=== PATIENT | male | born 1935 | race Caucasian/White ===

== ENCOUNTER 2016-07-30 07:06 | Observation (INO) | payer MEDICARE ==
[2016-07-30] VITALS (9 sets, daily range): BP systolic 120–196; BP diastolic 57–84; PULSE 74–114; RESP 18–22; TEMP 99.1–100.5; O2SAT 93–96
[~2016-07-30] VITALS: Ht 170.2 cm; Wt 77.2 kg
[~2016-07-30 07:06] MED LIST: ACAR50TA PO; APIX2.5T PO; ARIC10TA PO; ASPI81TA82 PO; ATOR80TA41 PO; EXEN2VIA SC; ISOS30 PO; LEVO.025 PO; LISI-360 PO; METO50CR PO; NAME10TA PO; NITR.4 SL; RANO500 PO; SUCR1TAB PO; UMEC1AER INH; ZOLO20CO PO
[2016-07-30] MEDS: SODIUM CHLORIDE 0.9% FLUSH 5 ML FLUSH IVF PRN ×2 (07:29→10:38)
--- NOTE | 2016-07-30 07:29 | PD ---
HPI Chief Complaint: General Weakness Time Seen by Provider: 07:29 Travel History International Travel<30 days: No (unknown) Contact w/Intl Traveler<30days: No (unknown) History of Present Illness HPI 81yo M with PMH of CAD, HLD, CVA, hypothyroidism, dementia, DM, Bladder CA s/p resection presents to the ED with c/o generalized weakness since waking up this morning. Pt denies any fever, cough, chest pain, sob, n/v, abdominal pain, or diarrhea. Pt had atrial flutter with PVCs on the monitor at 120s. BP was 196/ 84 so cardizem 20mg IV ordered. Pt had hospitalization on 09/25/15-09/30/15 for GI bleed and found to be bleeding from AVM. 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) Neurologic: Yes Psychiatric: No Reproductive: Yes (BLADDER MASS REMOVED LISTED ABOVE) Respiratory: Yes (ASTHMA) Immunizations Current: No Migraines: No Renal Failure: No Seizures: No Sleep Apnea: No Thyroid Disease: No Ulcer: No Past Surgical History Abdominal Surgery: Yes (BLADDER-MASS BETWEEN BLADDER AND KIDNEYS) AICD: No Ear Surgery: No Eye Surgery: Yes (CA IN LEFT EYE JUN 2015) Insulin Pump: No Joint Replacement: No Pacemaker: No Other Surgery: Yes (MASS REMOVED FROM KIDNEY AREA) Social History Alcohol Use: No Tobacco Use: No (QUIT 1979) Substance Use: No Allergies-Medications (Allergen,Severity, Reaction): Coded Allergies: Levaquin (Verified Allergy, Intermediate, RASH, 07/30/16) Penicillin (Verified Allergy, Unknown, UNKNOWN REACTION, 07/30/16) Reported Meds & Prescriptions Reported Meds & Active Scripts Active Reported Pantoprazole (Pantoprazole Sodium) 40 Mg Tab 40 Mg PO DAILY Tamsulosin (Tamsulosin HCl) 0.4 Mg Cap 0.4 Mg PO HS Glimepiride 4 Mg Tab 4 Mg PO BIDAC Gabapentin 100 Mg Cap 100 Mg PO TID Terazosin (Terazosin HCl) 5 Mg Cap 5 Mg PO HS Ciclopirox (Nail Lacquer) Topical 8% Soln 1 Applic TOPICAL HS Carisoprodol 350 Mg Tab 350 Mg PO QID PRN Montelukast (Montelukast Sodium) 10 Mg Tab 10 Mg PO HS Folic Acid 400 Mcg Tab 400 Mcg PO DAILY Aspirin Childrens (Aspirin) 81 Mg Chew 81 Mg CHEW DAILY Nitroglycerin SL (Nitroglycerin) 0.4 Mg Subl 0.4 Mg SL DIRECTED PRN ONE TABLET UNDER THE TONGUE NEEDED FOR CHEST PAIN, MAY REPEAT EVERY FIVE MINUTES FOR A TOTAL OF 3 DOSES OR CALL 911 IF NO RELIEF Sertraline (Sertraline HCl) 50 Mg Tab 50 Mg PO DAILY Levothyroxine (Levothyroxine Sodium) 25 Mcg Tab 25 Mcg PO DAILY Atorvastatin (Atorvastatin Calcium) 80 Mg Tab 80 Mg PO HS Donepezil Hydrochloride 5 Mg Tab 10 Mg PO DAILY Namenda (Memantine) 10 Mg Tab 0 PO BID Metoprolol Tartrate 50 Mg Tab 50 Mg PO BID Lisinopril 20 Mg Tab 20 Mg PO DAILY Acarbose 50 Mg Tab 50 Mg PO TID [ bydureon] 1 Applic SQ WEEKLY Review of Systems Except as stated in HPI: all other systems reviewed are Neg Physical Exam Narrative GENERAL: 81yo M not in acute distress. SKIN: Warm and dry. HEAD: Atraumatic. Normocephalic. EYES: Pupils equal and round. No scleral icterus. No injection or drainage. ENT: No nasal bleeding or discharge. Mucous membranes pink and moist. NECK: Trachea midline. No JVD. CARDIOVASCULAR: Tachycardic in the 120s. RESPIRATORY: No accessory muscle use. Clear to auscultation. Breath sounds equal bilaterally. GASTROINTESTINAL: Abdomen soft, non-tender, nondistended. No rebound tenderness or guarding. MUSCULOSKELETAL: No obvious deformities. No clubbing. No cyanosis. No edema. NEUROLOGICAL: Awake and alert. No obvious cranial nerve deficits. Motor grossly within normal limits. Normal speech. AAOx2. Data Data Last Documented VS Vital Signs Date Time Temp Pulse Resp B/P Pulse Ox O2 Delivery O2 Flow Rate FiO2 07/30/16 08:47 84 22 159/69 94 Room Air 07/30/16 07:21 99.1 Orders Electrocardiogram (07/30/16 07:15) Complete Blood Count With Diff (07/30/16 07:17) Comprehensive Metabolic Panel (07/30/16 07:17) Magnesium (Mg) (07/30/16 07:17) Ckmb (Isoenzyme) Profile (07/30/16 07:17) Troponin I (07/30/16 07:17) Act Partial Throm Time (Ptt) (07/30/16 07:17) Prothrombin Time / Inr (Pt) (07/30/16 07:17) Urinalysis - C+S If Indicated (07/30/16 07:17) Chest, Single Ap (07/30/16 07:17) Ecg Monitoring (07/30/16 07:17) Iv Access Insert/Monitor (07/30/16 07:17) Oximetry (07/30/16 07:17) Sodium Chloride 0.9% Flush (Ns Flush) (07/30/16 07:30) Thyroid Stimulating Hormone (07/30/16 07:17) Diltiazem Inj (Cardizem Inj) (07/30/16 07:30) Magnesium Sulfate 1 Gm Premix (Magnesium (07/30/16 07:30) Admit Order (Ed Use Only) (07/30/16 09:00) Enoxaparin Inj (Lovenox Inj) (07/30/16 09:00) Diltiazem Cd (Cardizem Cd) (07/30/16 09:00) Labs Laboratory Tests Test 07/30/16 07/30/16 07:35 07:45 White Blood Count 7.1 TH/MM3 Red Blood Count 4.01 MIL/MM3 Hemoglobin 11.2 GM/DL Hematocrit 34.4 % Mean Corpuscular Volume 85.7 FL Mean Corpuscular Hemoglobin 28.0 PG Mean Corpuscular Hemoglobin 32.6 % Concent Red Cell Distribution Width 17.5 % Platelet Count 135 TH/MM3 Mean Platelet Volume 7.9 FL Neutrophils (%) (Auto) 79.0 % Lymphocytes (%) (Auto) 6.9 % Monocytes (%) (Auto) 12.5 % Eosinophils (%) (Auto) 1.2 % Basophils (%) (Auto) 0.4 % Neutrophils # (Auto) 5.6 TH/MM3 Lymphocytes # (Auto) 0.5 TH/MM3 Monocytes # (Auto) 0.9 TH/MM3 Eosinophils # (Auto) 0.1 TH/MM3 Basophils # (Auto) 0.0 TH/MM3 CBC Comment DIFF FINAL Differential Comment Prothrombin Time 11.8 SEC Prothromb Time International 1.1 RATIO Ratio Activated Partial 28.7 SEC Thromboplast Time Sodium Level 138 MEQ/L Potassium Level 4.4 MEQ/L Chloride Level 102 MEQ/L Carbon Dioxide Level 25.9 MEQ/L Anion Gap 10 MEQ/L Blood Urea Nitrogen 18 MG/DL Creatinine 1.75 MG/DL Estimat Glomerular Filtration 38 ML/MIN Rate Random Glucose 237 MG/DL Calcium Level 8.2 MG/DL Magnesium Level 1.6 MG/DL Total Bilirubin 0.7 MG/DL Aspartate Amino Transf 16 U/L (AST/SGOT) Alanine Aminotransferase 26 U/L (ALT/SGPT) Alkaline Phosphatase 69 U/L Total Creatine Kinase 72 U/L Troponin I 0.05 NG/ML Total Protein 6.3 GM/DL Albumin 2.8 GM/DL Thyroid Stimulating Hormone 1.220 uIU/ML 3rd Gen Urine Color YELLOW Urine Turbidity CLEAR Urine pH 6.0 Urine Specific [place] 1.018 Urine Protein 30 mg/dL Urine Glucose (UA) 1000 mg/dL Urine Ketones NEG mg/dL Urine Occult Blood SMALL Urine Nitrite NEG Urine Bilirubin NEG Urine Urobilinogen LESS THAN 2.0 MG/DL Urine Leukocyte Esterase NEG Urine RBC 1 /hpf Urine WBC 1 /hpf Urine Squamous Epithelial <1 /hpf Cells Urine Mucus FEW /lpf Microscopic Urinalysis Comment CULT NOT INDICATED MDM Medical Decision Making Medical Screen Exam Complete: Yes Emergency Medical Condition: Yes Interpretation(s) EKG: Aflutter at 120bpm with PVCs. Last Impressions Chest X-Ray 07/30/16716 Signed Impressions: Service Date/Time: July 07:28 - CONCLUSION: Cardiomegaly. No acute abnormality seen. Ethan Rodriguez MD Laboratory Tests Test 07/30/16 07/30/16 07:35 07:45 White Blood Count 7.1 TH/MM3 (4.0-11.0) Red Blood Count 4.01 MIL/MM3 (4.50-5.90) Hemoglobin 11.2 GM/DL (13.0-17.0) Hematocrit 34.4 % (39.0-51.0) Mean Corpuscular Volume 85.7 FL (80.0-100.0) Mean Corpuscular Hemoglobin 28.0 PG (27.0-34.0) Mean Corpuscular Hemoglobin 32.6 % Concent (32.0-36.0) Red Cell Distribution Width 17.5 % (11.6-17.2) Platelet Count 135 TH/MM3 (150-450) Mean Platelet Volume 7.9 FL (7.0-11.0) Neutrophils (%) (Auto) 79.0 % (16.0-70.0) Lymphocytes (%) (Auto) 6.9 % (9.0-44.0) Monocytes (%) (Auto) 12.5 % (0.0-8.0) Eosinophils (%) (Auto) 1.2 % (0.0-4.0) Basophils (%) (Auto) 0.4 % (0.0-2.0) Neutrophils # (Auto) 5.6 TH/MM3 (1.8-7.7) Lymphocytes # (Auto) 0.5 TH/MM3 (1.0-4.8) Monocytes # (Auto) 0.9 TH/MM3 (0-0.9) Eosinophils # (Auto) 0.1 TH/MM3 (0-0.4) Basophils # (Auto) 0.0 TH/MM3 (0-0.2) CBC Comment DIFF FINAL Differential Comment Prothrombin Time 11.8 SEC (9.8-11.6) Prothromb Time International 1.1 RATIO Ratio Activated Partial 28.7 SEC Thromboplast Time (24.3-30.1) Sodium Level 138 MEQ/L (136-145) Potassium Level 4.4 MEQ/L (3.5-5.1) Chloride Level 102 MEQ/L (98-107) Carbon Dioxide Level 25.9 MEQ/L (21.0-32.0) Anion Gap 10 MEQ/L (5-15) Blood Urea Nitrogen 18 MG/DL (7-18) Creatinine 1.75 MG/DL (0.60-1.30) Estimat Glomerular Filtration 38 ML/MIN (>89) Rate Random Glucose 237 MG/DL (74-106) Calcium Level 8.2 MG/DL (8.5-10.1) Magnesium Level 1.6 MG/DL (1.5-2.5) Total Bilirubin 0.7 MG/DL (0.2-1.0) Aspartate Amino Transf 16 U/L (15-37) (AST/SGOT) Alanine Aminotransferase 26 U/L (12-78) (ALT/SGPT) Alkaline Phosphatase 69 U/L (45-117) Total Creatine Kinase 72 U/L (39-308) Troponin I 0.05 NG/ML (0.02-0.05) Total Protein 6.3 GM/DL (6.4-8.2) Albumin 2.8 GM/DL (3.4-5.0) Thyroid Stimulating Hormone 1.220 uIU/ML 3rd Gen (0.358-3.740) Urine Color YELLOW (YELLW/STRAW) Urine Turbidity CLEAR (CLEAR) Urine pH 6.0 (5.0-8.5) Urine Specific [place] 1.018 (1.002-1.035) Urine Protein 30 mg/dL (NEG-TRACE) Urine Glucose (UA) 1000 mg/dL (NEG) Urine Ketones NEG mg/dL (NEG) Urine Occult Blood SMALL (NEG) Urine Nitrite NEG (NEG) Urine Bilirubin NEG (NEG) Urine Urobilinogen LESS THAN 2.0 MG/DL (LESS THAN 2.0) Urine Leukocyte Esterase NEG (NEG) Urine RBC 1 /hpf (0-3) Urine WBC 1 /hpf (0-5) Urine Squamous Epithelial <1 /hpf (0-5) Cells Urine Mucus FEW /lpf (OCC) Microscopic Urinalysis Comment CULT NOT INDICATED Differential Diagnosis Atrial flutter vs. dehydration vs. electrolyte abnormalities vs. GI bleed vs. infectious cause such as UTI or PNA vs. hyperthyroidism Narrative Course 81yo M with generalized weakness since this morning. Pt was in aflutter in the 120s and given cardizem 20mg IV. Pt's heart rate improved to 80s. Pt has no history of aflutter. Labs reviewed, no leukocytosis. Creatinine mildly elevated from baseline at 1.75. Troponin 0.05. Glucose 237, no increased anion gap, normal CO2. Mg 1.6, given 1gm of magnesium sulfate. Calcium 8.2, replace with calcium gluconate. TSH 1.22. CXR showed cardiomegaly. No acute abnormality seen. Paged pt's bank examiner Dr. Bond. Discussed with Dr. Bond who states he does not know the patient and does not know if he had that history. Discussed with Dr. Dumont who recommended I start him on PO cardizem and lovenox. Accepted to medicine service. Critical Care Narrative Aggregate critical care time was 35 minutes. Time to perform other separately billable procedures was not included in the critical care time. My time did not include minutes spent treating any other patients simultaneously or on activities that did not directly contribute to the patient's treatment. The services I provided to this patient were to treat and/or prevent clinically significant deterioration that could result in: cardiovascular collapse or . I provided critical care services requiring my management, as noted below: Chart data review, documentation time, medication orders and management, vital sign assessments/reviewing monitor data, ordering and reviewing lab tests, ordering and interpreting/reviewing x-rays and diagnostic studies, care of the patient and discussion of the patient with the admitting physicians. Diagnosis Primary Impression: Atrial flutter Qualified Code: I48.92 - Atrial flutter, unspecified type Admitting Information Admitting Physician Requests: it Francesca Dawkins DO Jul 30, 2016 07:29
[2016-07-30] MEDS ORDERED: DILTIAZEM HCL 25 MG/5 ML VIAL IV ONE (07:30)
[2016-07-30] MEDS ORDERED: MAGNESIUM SULFATE 1 GM PREMIX 100 ML IV ONE (07:30)
[2016-07-30 07:54] LABS: AUTOMATED NEUTROPHIL # 5.6 TH/MM3 (1.8-7.7); BASOPHIL % 0.4 % (0.0-2.0); EOSINOPHIL # 0.1 TH/MM3 (0-0.4); EOSINOPHIL % 1.2 % (0.0-4.0); HEMATOCRIT 34.4 % (39.0-51.0); HEMO FLAGS DIFF FINAL; LYMPH % 6.9 % (9.0-44.0); LYMPHOCYTE # 0.5 TH/MM3 (1.0-4.8); MEAN CELL VOLUME 85.7 FL (80.0-100.0); MEAN CORPUSCULAR HGB CONC 32.6 % (32.0-36.0); MONO % 12.5 % (0.0-8.0); PLATELET COUNT 135 TH/MM3 (150-450); RED BLOOD COUNT 4.01 MIL/MM3 (4.50-5.90); RED CELL DISTRIBUTION WIDTH 17.5 % (11.6-17.2); WHITE BLOOD COUNT 7.1 TH/MM3 (4.0-11.0)
--- NOTE | 2016-07-30 08:01 | RADRPT ---
EXAM DATE/TIME: 07/30/2016 07:28 [facility] COMPARISON: CHEST SINGLE AP, September 25, 2015, 22:26. INDICATIONS : Patient states no complaint except being confused. MEDICAL HISTORY : Myocardial infarction. Hypercholesterolemia. Cerebrovascular accident. Dementia. SURGICAL HISTORY : Bladder mass removal. Tumors removed from left kidney. ENCOUNTER: Initial ACUITY: 1 day PAIN SCORE: 0/10 LOCATION: Bilateral chest FINDINGS: Heart size is mildly enlarged. The aortic arch is calcified. The lungs are clear. No effusion is seen . There is degenerative change of the glenohumeral joints. CONCLUSION: Cardiomegaly. No acute abnormality seen. Ethan Rodriguez MD on July 30, 2016 at 7:55 Board Certified Radiologist. This report was verified electronically.
[2016-07-30 08:05] LABS: ALT (GPT) 26 U/L (12-78); ANION GAP 10 MEQ/L (5-15); AST (GOT) 16 U/L (15-37); BICARBONATE 25.9 MEQ/L (21.0-32.0); BLOOD UREA NITROGEN 18 MG/DL (7-18); CHLORIDE 102 MEQ/L (98-107); GLOMERULAR FILTRATION RATE 38 ML/MIN (>89); MAGNESIUM 1.6 MG/DL (1.5-2.5); POTASSIUM 4.4 MEQ/L (3.5-5.1); SODIUM (NA) 138 MEQ/L (136-145)
[2016-07-30 08:13] LABS: APTT (PATIENT) 28.7 SEC (24.3-30.1); INTERNATIONAL NORMALIZED RATIO 1.1 RATIO; PROTHROMBIN TIME - PATIENT 11.8 SEC (9.8-11.6)
[2016-07-30 08:15] LABS: ALKALINE PHOSPHATASE 69 U/L (45-117); TOTAL BILIRUBIN ADULT 0.7 MG/DL (0.2-1.0)
[2016-07-30 08:17] LABS: CREATINE KINASE 72 U/L (39-308)
[2016-07-30 08:25] LABS: BLOOD, URINE SMALL (NEG); COMMENT (UR) CULT NOT INDICATED; CULTURE IF INDICATED CULT NOT INDICATED; GLUCOSE,URINE 1000 mg/dL (NEG); KETONE, URINE NEG (NEG); MUCUS URINE FEW /lpf (OCC); NITRITE,URINE NEG (NEG); SQUAMOUS EPITHELIAL CELL URINE <1 /hpf (0-5); URINE COLOR YELLOW (YELLW/STRAW)
[2016-07-30] MEDS ORDERED: METO50TA PO (08:45)
[2016-07-30] MEDS ORDERED: GABA100C4 PO (08:45)
[2016-07-30] MEDS ORDERED: GLIM4TAB PO (08:45)
[2016-07-30] MEDS ORDERED: SERT-132 PO (08:45)
[2016-07-30] MEDS ORDERED: LEVO25TA4 PO (08:45)
[2016-07-30] MEDS ORDERED: NAME10TA PO (08:45)
[2016-07-30] MEDS ORDERED: DONE1TAB90 PO (08:45)
[2016-07-30] MEDS ORDERED: TAMS0.4C4 PO (08:45)
[2016-07-30] MEDS ORDERED: CICL8SOL TOPICAL (08:45)
[2016-07-30] MEDS ORDERED: NITR1SUB3 SL (08:45)
[2016-07-30] MEDS ORDERED: PANT40TA3 PO (08:45)
[2016-07-30] MEDS ORDERED: FOLI400T PO (08:45)
[2016-07-30] MEDS ORDERED: ATOR1TAB18 PO (08:45)
[2016-07-30] MEDS ORDERED: ACAR50TA PO (08:45)
[2016-07-30] MEDS ORDERED: CARI350T20 PO (08:45)
[2016-07-30] MEDS ORDERED: ASPI81CH5 CHEW (08:45)
[2016-07-30] MEDS ORDERED: MONT10TA4 PO (08:45)
[2016-07-30] MEDS ORDERED: bydureon SQ (08:45)
[2016-07-30] MEDS ORDERED: LISI-515 PO (08:45)
[2016-07-30] MEDS ORDERED: TERA5CAP3 PO (08:45)
[2016-07-30] MEDS ORDERED: DILTIAZEM-CD 120 MG CAP ER PO ONE (09:00)
[2016-07-30] MEDS ORDERED: ENOXAPARIN SODIUM 30 MG/0.3 ML SYRINGE SQ ONE (09:00)
[2016-07-30] MEDS ORDERED: CALCIUM GLUCONATE INJ 1 GM in DEXTROSE 5% IN WATER 100ML INJ 100 ML IV ONE ×2 (09:15)
[2016-07-30] MEDS ORDERED: GLUCAGON 1 MG/ML VIAL OTHER PRN (10:30)
[2016-07-30] MEDS ORDERED: DEXTROSE 50% IN WATER 50 ML VIAL(D50) IV PUSH PRN (10:30)
[2016-07-30] MEDS: INSULIN ASPART SUPPLEMENTAL SCALE SQ SCH ×3 (11:59→21:00)
[2016-07-30] MEDS ORDERED: ACARBOSE 50 MG PO SCH (13:00)
[2016-07-30] MEDS: DILTIAZEM HCL 30 MG TAB PO SCH ×2 (13:43→17:33)
[2016-07-30] MEDS: GABAPENTIN 100 MG CAP PO SCH ×2 (13:43→17:33)
[2016-07-30] MEDS ORDERED: SODIUM CHLORIDE 0.9% FLUSH 5 ML FLUSH FLUSH PRN (14:30)
[2016-07-30] MEDS ORDERED: NALOXONE HCL 0.4 MG/ML AMP IV PRN (14:30)
[2016-07-30] MEDS ORDERED: ONDANSETRON HCL 4 MG/2 ML VIAL IVP PRN (14:30)
[2016-07-30] MEDS ORDERED: ACETAMINOPHEN 325 MG TAB PO PRN (14:30)
[2016-07-30] MEDS ORDERED: MAGNESIUM HYDROXIDE SUSP 30 ML CUP PO PRN (14:30)
[2016-07-30] MEDS ORDERED: ENOXAPARIN SODIUM 40 MG/0.4 ML SYRINGE SQ SCH (15:00)
[2016-07-30] MEDS: DOCUSATE SODIUM 100 MG CAP PO SCH (15:00)
--- NOTE | 2016-07-30 15:21 | HHI.HP ---
HPI Service [facility] Primary [facility] Harrison Jackson MD Admission Diagnosis Aflutter Diagnoses: Chief Complaint: acute onset weakness, SOB, clammy (Tashia Palacios) Travel History International Travel<30 Days: No (unknown) Contact w/Intl Traveler <30 Da: No (unknown) Traveled to Known Affected Are: No (Tashia Palacios) History of Present Illness This is an 81-year-old white male with multi-medical comorbid conditions including coronary artery disease, dementia, GI bleed, diabetes, and NV. Patient had been in his usual condition up until this a.m. He awoke his around 645 this a.m. with complaints of extreme weakness and shortness of breath. Patient was unable to get out of the bed without major assistance and had urinated on himself. was unable to help patient get up to the bathroom , but she states he ended up crawling most of the way. She states he is for head was clammy to touch, but he did not complain of any chest pain. Patient also complained of some events of constipation in the recent past, and GI distress. One half states patient did have complaints of mild headache but denies any cough or diarrhea. Patient is a poor historian due to his dementia so is the main historian in the emergency room. In the emergency room, patient was placed on the heart monitor which showed atrial flutter with rapid ventricular response. Patient was treated with IV Cardizem. He also was hypertensive with systolic blood pressure 196, but now has returned back into the 148 systolic range. Patient has decreased appetite noted here in the ER and states that this has been a problem for the past week. 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 Heart appearing Hypertension Degenerative disc disease History of tobacco use History of alcohol use Past Surgical History Cardiac stents Bladder surgery for bladder mass Left surgery Reported Medications Active Medications Acetaminophen (Tylenol) 650 mg Q4H PRN PO; Start 07/30/16 at 14:30 Aspirin (Aspirin Chew) 81 mg DAILY CHEW; Start 07/31/16 at 09:00 Atorvastatin Calcium (Lipitor) 80 mg HS PO; Start 07/30/16 at 21:00 Calcium Gluconate/ Dextrose (Calcium Gluconate Inj/D5W 100 ml Inj) 110 ml @ 110 mls/hr ONCE ONCE IV Last administered on 07/30/16 10:38; Admin Dose 110 MLS/HR; Start 07/30/16 at 09:15; Stop 07/30/16 at 10:14; Status DC Dextrose (D50w (Vial) Inj) 25 ml UNSCH PRN IV PUSH; Start 07/30/16 at 10:30 Diltiazem HCl (Cardizem) 30 mg QID PO Last administered on 07/30/16 13:43; Admin Dose 30 MG; Start 07/30/16 at 13:00 Diltiazem HCl 120 mg 120 mg ONCE ONCE PO Last administered on 07/30/16 10:38; Admin Dose 120 MG; Start 07/30/16 at 09:00; Stop 07/30/16 at 09:02; Status DC Diltiazem HCl 20 mg 20 mg ONCE ONCE IV Last administered on 07/30/16 07:29; Admin Dose 20 MG; Start 07/30/16 at 07:30; Stop 07/30/16 at 07:31; Status DC Docusate Sodium (Colace) 100 mg Q12H PO; Start 07/30/16 at 15:00 Donepezil HCl (Aricept) 10 mg DAILY PO; Start 07/31/16 at 09:00 Enoxaparin Sodium (Lovenox Inj) 35 mg ONCE ONCE SQ Last administered on 10:38; Admin Dose 35 MG; Start 07/30/16 at 09:00; Stop 07/30/16 at 09:02; Status DC Enoxaparin Sodium (Lovenox Inj) 40 mg Q24H SQ; Start 07/30/16 at 15:00; Stop at 15:00; Status DC Enoxaparin Sodium (Lovenox Inj) 40 mg Q24H SQ; Start 07/31/16 at 09:00 Folic Acid (Folate) 1 mg DAILY PO; Start 07/31/16 at 09:00 Gabapentin (Neurontin) 100 mg TID PO Last administered on 07/30/16 13:43; Admin Dose 100 MG; Start 07/30/16 at 13:00 Glimepiride (Amaryl) 4 mg BIDAC PO; Start 07/30/16 at 16:00 Glucagon (Glucagon Inj) 1 mg UNSCH PRN OTHER; Start 07/30/16 at 10:30 IV Flush (NS Flush) 2 ml BID FLUSH; Start 07/30/16 at 21:00 IV Flush (NS Flush) 2 ml UNSCH PRN FLUSH; Start 07/30/16 at 14:30 IV Flush (NS Flush) 2 ml UNSCH PRN IVF Last administered on 07/30/16 10:38; Admin Dose 2 ML; Start 07/30/16 at 07:30; Stop 07/30/16 at 14:34; Status DC Levothyroxine Sodium (Synthroid) 25 mcg DAILY PO; Start 07/31/16 at 09:00 Lisinopril (Prinivil) 20 mg DAILY PO; Start 07/31/16 at 09:00 Magnesium Hydroxide (Milk Of Cem Liq) 30 ml Q12H PRN PO; Start 07/30/16 at 14:30 Magnesium Sulfate/ Dextrose (Magnesium Sulfate 1 Gm Premix) 100 ml @ 100 mls/ hr ONCE ONCE IV Last administered on 07/30/16 07:56; Admin Dose 100 MLS/HR; Start 07/30/16 at 07:30; Stop 07/30/16 at 08:29; Status DC Metoprolol Tartrate (Lopressor) 50 mg BID PO; Start 07/30/16 at 21:00 Montelukast Sodium (Singulair) 10 mg HS PO; Start 07/30/16 at 21:00 Naloxone HCl (Narcan Inj) 0.4 mg UNSCH PRN IV; Start 07/30/16 at 14:30 Ondansetron HCl (Zofran Inj) 4 mg Q6H PRN IVP; Start 07/30/16 at 14:30 Pantoprazole Sodium (Protonix) 40 mg DAILY PO; Start 07/31/16 at 09:00 Patient Own Medication PT OWN MED: ACARB... TID PO; Start 07/30/16 at 13:00; Status Hold Sertraline HCl (Zoloft) 50 mg DAILY PO; Start 07/31/16 at 09:00 Tamsulosin HCl (Flomax) 0.4 mg HS PO; Start 07/30/16 at 21:00 (Tashia Palacios) Allergies: Coded Allergies: Eliquis (Verified Allergy, Severe, bleeding, 07/30/16) requests not to be given Levaquin (Verified Allergy, Intermediate, RASH, 07/30/16) Penicillin (Verified Allergy, Unknown, UNKNOWN REACTION, 07/30/16) Active Ordered Medications Active Medications Acetaminophen (Tylenol) 650 mg Q4H PRN PO; Start 07/30/16 at 14:30 Aspirin (Aspirin Chew) 81 mg DAILY CHEW; Start 07/31/16 at 09:00 Atorvastatin Calcium (Lipitor) 80 mg HS PO; Start 07/30/16 at 21:00 Calcium Gluconate/ Dextrose (Calcium Gluconate Inj/D5W 100 ml Inj) 110 ml @ 110 mls/hr ONCE ONCE IV Last administered on 07/30/16 10:38; Admin Dose 110 MLS/HR; Start 07/30/16 at 09:15; Stop 07/30/16 at 10:14; Status DC Dextrose (D50w (Vial) Inj) 25 ml UNSCH PRN IV PUSH; Start 07/30/16 at 10:30 Diltiazem HCl (Cardizem) 30 mg QID PO Last administered on 07/30/16 13:43; Admin Dose 30 MG; Start 07/30/16 at 13:00 Diltiazem HCl 120 mg 120 mg ONCE ONCE PO Last administered on 07/30/16 10:38; Admin Dose 120 MG; Start 07/30/16 at 09:00; Stop 07/30/16 at 09:02; Status DC Diltiazem HCl 20 mg 20 mg ONCE ONCE IV Last administered on 07/30/16 07:29; Admin Dose 20 MG; Start 07/30/16 at 07:30; Stop 07/30/16 at 07:31; Status DC Docusate Sodium (Colace) 100 mg Q12H PO; Start 07/30/16 at 15:00 Donepezil HCl (Aricept) 10 mg DAILY PO; Start 07/31/16 at 09:00 Enoxaparin Sodium (Lovenox Inj) 35 mg ONCE ONCE SQ Last administered on 10:38; Admin Dose 35 MG; Start 07/30/16 at 09:00; Stop 07/30/16 at 09:02; Status DC Enoxaparin Sodium (Lovenox Inj) 40 mg Q24H SQ; Start 07/30/16 at 15:00; Stop at 15:00; Status DC Enoxaparin Sodium (Lovenox Inj) 40 mg Q24H SQ; Start 07/31/16 at 09:00 Folic Acid (Folate) 1 mg DAILY PO; Start 07/31/16 at 09:00 Gabapentin (Neurontin) 100 mg TID PO Last administered on 07/30/16 13:43; Admin Dose 100 MG; Start 07/30/16 at 13:00 Glimepiride (Amaryl) 4 mg BIDAC PO; Start 07/30/16 at 16:00 Glucagon (Glucagon Inj) 1 mg UNSCH PRN OTHER; Start 07/30/16 at 10:30 IV Flush (NS Flush) 2 ml BID FLUSH; Start 07/30/16 at 21:00 IV Flush (NS Flush) 2 ml UNSCH PRN FLUSH; Start 07/30/16 at 14:30 IV Flush (NS Flush) 2 ml UNSCH PRN IVF Last administered on 07/30/16 10:38; Admin Dose 2 ML; Start 07/30/16 at 07:30; Stop 07/30/16 at 14:34; Status DC Levothyroxine Sodium (Synthroid) 25 mcg DAILY PO; Start 07/31/16 at 09:00 Lisinopril (Prinivil) 20 mg DAILY PO; Start 07/31/16 at 09:00 Magnesium Hydroxide (Milk Of Magnesia Liq) 30 ml Q12H PRN PO; Start 07/30/16 at 14:30 Magnesium Sulfate/ Dextrose (Magnesium Sulfate 1 Gm Premix) 100 ml @ 100 mls/ hr ONCE ONCE IV Last administered on 07/30/16 07:56; Admin Dose 100 MLS/HR; Start 07/30/16 at 07:30; Stop 07/30/16 at 08:29; Status DC Metoprolol Tartrate (Lopressor) 50 mg BID PO; Start 07/30/16 at 21:00 Montelukast Sodium (Singulair) 10 mg HS PO; Start 07/30/16 at 21:00 Naloxone HCl (Narcan Inj) 0.4 mg UNSCH PRN IV; Start 07/30/16 at 14:30 Ondansetron HCl (Zofran Inj) 4 mg Q6H PRN IVP; Start 07/30/16 at 14:30 Pantoprazole Sodium (Protonix) 40 mg DAILY PO; Start 07/31/16 at 09:00 Patient Own Medication PT OWN MED: ACARB... TID PO; Start 07/30/16 at 13:00; Status Hold Sertraline HCl (Zoloft) 50 mg DAILY PO; Start 07/31/16 at 09:00 Tamsulosin HCl (Flomax) 0.4 mg HS PO; Start 07/30/16 at 21:00 Family History Mother and father NV Father cancer Social History Tobacco abuse quit in 1979 EtOH abuse quit proximately 30 years ago No illicit drugs (Tashia Palacios) Physical Exam Vital Signs Vital Signs Date Time Temp Pulse Resp B/P Pulse Ox O2 Delivery O2 Flow Rate FiO2 07/30/16 13:42 89 18 148/72 96 Room Air 07/30/16 11:45 95 22 141/62 96 Room Air 07/30/16 10:20 82 122/57 07/30/16 08:47 84 22 159/69 94 Room Air 07/30/16 07:32 101 139/65 07/30/16 07:21 99.1 114 22 196/84 94 Physical Exam GENERAL: This is a thin,well-nourished, well-developed patient, in no apparent distress at rest.. SKIN: No rashes, ecchymoses or lesions. Cool and dry. HEAD: Atraumatic. Normocephalic. No temporal or scalp tenderness. EYES: Pupils 2mm,equal round and reactive. Extraocular motions intact. No scleral icterus. No injection or drainage. ENT: Nose without bleeding, purulent drainage or septal hematoma. Throat without erythema, tonsillar hypertrophy or exudate. Uvula midline. Airway patent. NECK: Trachea midline. No JVD or lymphadenopathy. Supple, nontender, no meningeal signs. CARDIOVASCULAR: irregular rate and rhythm Gr 4 holosystolic murmur at LLSB, no gallops, or rubs. RESPIRATORY: Clear to auscultation. Breath sounds equal bilaterally. No wheezes , rales, or rhonchi. GASTROINTESTINAL: Abdomen soft, non-tender, nondistended. No hepato-splenomegaly , or palpable masses. No guarding. MUSCULOSKELETAL: Extremities without clubbing, cyanosis, or edema. No joint tenderness, effusion, or edema noted. No calf tenderness. NEUROLOGICAL: Awake to loud verbal stimuli, not oriented to time or situation. His Cranial nerves II through XII intact. Motor and sensory grossly within normal limits. Four out of 5 muscle strength in all muscle groups. Normal speech. Laboratory Laboratory Tests Test 07/30/16 07/30/16 07/30/16 07:35 07:45 12:18 White Blood Count 7.1 Red Blood Count 4.01 Hemoglobin 11.2 Hematocrit 34.4 Mean Corpuscular Volume 85.7 Mean Corpuscular Hemoglobin 28.0 Mean Corpuscular Hemoglobin 32.6 Concent Red Cell Distribution Width 17.5 Platelet Count 135 Mean Platelet Volume 7.9 Neutrophils (%) (Auto) 79.0 Lymphocytes (%) (Auto) 6.9 Monocytes (%) (Auto) 12.5 Eosinophils (%) (Auto) 1.2 Basophils (%) (Auto) 0.4 Neutrophils # (Auto) 5.6 Lymphocytes # (Auto) 0.5 Monocytes # (Auto) 0.9 Eosinophils # (Auto) 0.1 Basophils # (Auto) 0.0 CBC Comment DIFF FINAL Differential Comment Prothrombin Time 11.8 Prothromb Time International 1.1 Ratio Activated Partial 28.7 Thromboplast Time Sodium Level 138 Potassium Level 4.4 Chloride Level 102 Carbon Dioxide Level 25.9 Anion Gap 10 Blood Urea Nitrogen 18 Creatinine 1.75 Estimat Glomerular Filtration 38 Rate Random Glucose 237 Calcium Level 8.2 Magnesium Level 1.6 Total Bilirubin 0.7 Aspartate Amino Transf 16 (AST/SGOT) Alanine Aminotransferase 26 (ALT/SGPT) Alkaline Phosphatase 69 Total Creatine Kinase 72 Troponin I 0.05 0.06 Total Protein 6.3 Albumin 2.8 Thyroid Stimulating Hormone 1.220 3rd Gen Urine Color YELLOW Urine Turbidity CLEAR Urine pH 6.0 Urine Specific [place] 1.018 Urine Protein 30 Urine Glucose (UA) 1000 Urine Ketones NEG Urine Occult Blood SMALL Urine Nitrite NEG Urine Bilirubin NEG Urine Urobilinogen LESS THAN 2.0 Urine Leukocyte Esterase NEG Urine RBC 1 Urine WBC 1 Urine Squamous Epithelial <1 Cells Urine Mucus FEW Microscopic Urinalysis Comment CULT NOT INDICATED (Tashia Palacios) Result Diagram: 07/30/16 0735 07/30/1635 Imaging Last Impressions Chest X-Ray 07/30/16716 Signed Impressions: Service Date/Time: July 07:28 - CONCLUSION: Cardiomegaly. No acute abnormality seen. Ethan Rodriguez MD (Tashia Palacios) Septic Shock Reassessment Heart: Irregular, Murmur Lungs: Clear Skin: Warm, Dry Peripheral Pulses: Bounding Right Radial Bounding Left Radial Bounding Right Popliteal Bounding Left Popliteal Bounding Right Dorsalis Pedis Bounding Left Dorsalis Pedis Bounding Right Posterior Tibial Bounding Left Posterior Tibial Capillary Refill: Brisk (Tashia Palacios) Assessment and Plan Problem List: (1) Atrial flutter (2) Afib (3) CKD (chronic kidney disease) stage 3, GFR 30-59 ml/min (4) HTN (hypertension) (5) CAD (coronary artery disease) (6) Hyperlipidemia (7) Ischemic cardiomyopathy Assessment and Plan Monitor with continuous Telemetry, vital signs and notes any acute changes. Start PO Cardizem DVT and PUD prophylaxis Cardiology consult for expert opinion of new onset Aflutter, Afib cardiac echo ordered Monitor labs for any renal function acute changes. PO hydration Reconcil meds, Accuchecks and sliding scale for DM management, 1800 ADA diet. EKGs for any acute changes or chest pain Please note is going to bring in living will, but for now pt. is Full code , Full aggressive care Discussed With: Nurse, Other (, Dr. Dumont) (Tashia Palacios) Assessment and Plan pt is seen & examined d/w Tashia ' agree w above will f/u (Neelima Dumont MD) Problem Qualifiers (1) Atrial flutter: Qualified Code: I48.4 - Atypical atrial flutter (2) Afib: Qualified Code: I48.1 - Persistent atrial fibrillation (3) HTN (hypertension): Qualified Code: I10 - Essential hypertension (4) CAD (coronary artery disease): (5) Hyperlipidemia: Qualified Code: E78.5 - Hyperlipidemia, unspecified hyperlipidemia type Tashia Palacios Jul 30, 2016 15:21 Neelima Dumont MD Jul 30, 2016 18:02
[2016-07-30] MEDS: GLIMEPIRIDE 4 MG TAB PO SCH (17:33)
--- NOTE | 2016-07-30 18:51 | MB ---
cc: JUVENTINO ADANGrey DEVRIES DATE OF CONSULTATION 07/30/16 IMPRESSION 1. Generalized profound weakness to the point where the patient could not ambulate, states that he slipped out of the bed with no head or neck trauma, apparently urinated on himself. 2. Abdominal pain, etiology unknown. 3. Atrial flutter apparently new onset. 4. Ischemic cardiomyopathy, EF of 30-35 with four vessel coronary artery disease. Apparently, the patient was deemed not a candidate for coronary artery bypass grafting surgery and medical treatment has been recommended 5. Chronic renal failure. 6. Hypertension. 7. Dyslipidemia. 8. Ischemic cardiomyopathy [place] [employer] functional class III. 9. Dimension. 10. Anemia. 11. Previous history of GI bleeding. 12. Hypothyroidism RECOMMENDATIONS 1. The patient has been started on diltiazem. Intravenous diltiazem has not been started. His ventricular response rate is currently at 60-80 beat per minute range. 2. Check an echocardiogram LV size and function, left atrial chamber size. 3. Medical therapy. The patient is not a candidate for cardiac intervention or cardiac surgery. CLINICAL DATA Mr. Werner is an 81-year-old male who was admitted to the hospital. He apparently awoke this morning, tried to get out of bed and could not get up. He also complained of abdominal pain without diarrhea and without nausea or vomiting. I believe he has a previous history of gastritis/peptic ulcer disease with GI bleeding in the past. He apparently tried to get out of bed. He slid to the floor but did not fall to the floor. There was no loss of consciousness, but he has been having dizziness, gait instability and generalized profound weakness lately. He had no chest pain. He states he has exertional dyspnea but was not dyspneic this morning and is not dyspneic now. He has an ischemic cardiomyopathy. His last cardiac catheterization was performed by Dr. Guthrie on August 12, 2015. He was apparently admitted at that time with a non STEMI and chest pain. He was found to have four vessel disease and EF of 30%. His nuclear stress test demonstrated multiple reversible perfusion defects and was felt to be a high risk study. The patient has clinical history of myocardial infarction and congestive heart failure. As I recall, he does not have a history of previous atrial fib/atrial flutter. He has no history of important ventricular arrhythmias. There is no definite history of seizure or stroke. He denies a history of lung disease but was a former smoker. He has history of GI bleeding as noted above. There is no history of pancreatitis or gallbladder disease that I am unaware of. He has chronic renal failure. He has a history of hypothyroidism on replacement therapy. He has a history of bladder cancer. There is no history of DVT or pulmonary thromboembolic disease. He denies recent chest pain but has complained of episodic dizziness and generalized weakness. He denies lower extremity edema but states he gets Ji horses at night. He denies claudication to me. He has had no trans___logical deficits or amaurosis fugax, again, no chest discomfort. No nausea, vomiting or diarrhea but he has had abdominal pain. PHYSICAL EXAMINATION At this time demonstrates an alert, oriented male. He is laying flat in bed. He is not dyspneic nor tachypneic on room air. His blood pressure is 159/69, heart rate is 60-80 and irregular, room air sat 94-96%. HEENT: Anicteric sclerae. NECK: Jugular venous pressures are normal. There are no carotid bruits. LUNGS: He has scattered rhonchi, WAS clear posttussively, no wheezes or rales currently noted. CARDIAC: Cannot palpate the PMI. There is an irregular rhythm, S1 normal. HP2 normal. There is a 1-2/6 systolic ejection murmur. No diastolic murmurs or gallops noted. ABDOMEN: Currently benign. There is no definite visceromegaly or masses noted. EXTREMITIES: Free of cyanosis, clubbing or edema. The posterior tib pulses Are diminished 2/4 bilaterally. A 12-lead electrocardiogram demonstrated atrial flutter. the ER doctor states that the patient's heart rate was in the 120s when he was seen this morning. There are occasional PVCs. There are ST-segment depressions in the lateral leads. LABORATORY EVALUATION White cell count 7100, hematocrit 34%, platelet count 135. Baseline coags are normal. Lytes - 138, 4.4, 102, 26, BUN 18, creatinine of 1.75 with a GFR of 38. Transaminases are normal. Alk phos normal. Troponin is minimally increased at 0.06. TSH 1.2. IMAGING STUDIES Chest x-ray demonstrates cardiomegaly with no effusions, infiltrates or pulmonary edema. Echocardiogram is pending. DISCUSSION This is an 81-year-old debilitated male in poor general medical condition admitted in the hospital with new onset A flutter and profound weakness. He has multiple comorbidities. Recommendations are as noted above. DO JILLIAN Ram/ /5:11 PM /6:31 PM
[2016-07-30] MEDS ORDERED: amLODIPine BESYLATE 5 MG TAB PO PRN (19:15)
[2016-07-30] MEDS: METOPROLOL TARTRATE 50 MG TAB PO SCH (20:00)
[2016-07-30] MEDS: AMIODARONE 200 MG TAB PO SCH (20:00)
[2016-07-30 20:08] LABS: HDL CHOLESTEROL 46.8 MG/DL (40.0-60.0)
--- NOTE | 2016-07-30 20:55 | EKG ---
Date Performed: 07/30/2016 Time Performed: 06:19:31 PTAGE: 81 years EKG: ATRIAL FLUTTEr WITH RAPID VENTRICULAR RESPONSE WITH ABERRANT CONDUCTION OR VENTRICULAR VAMSI ATURE COMPLEXES NONSPECIFIC T-WAVE ABNORMALITY ABNORMAL RHYTHM ECG PREVIOUS TRACING : 09/27/2015 02.44 DOCTOR: Kemal Mackey Interpretating Date/Time 07/30/2016 20:53:57
[2016-07-30] MEDS ORDERED: METOPROLOL TARTRATE 50 MG TAB PO SCH (21:00)
[2016-07-30] MEDS: LISINOPRIL 20 MG TAB PO SCH (21:16)
[2016-07-30] MEDS: SODIUM CHLORIDE 0.9% FLUSH 5 ML FLUSH FLUSH SCH (21:16)
[2016-07-30] MEDS: ATORVASTATIN 80 MG TAB PO SCH (21:16)
[2016-07-30] MEDS: TAMSULOSIN HCL 0.4 MG CAP PO SCH (21:16)
[2016-07-30] MEDS: MONTELUKAST SODIUM 10 MG TAB PO SCH (21:17)
[2016-07-31 00:25] VITALS: BP 107/60; PULSE 63; RESP 20; TEMP 98.3; O2SAT 94
[2016-07-31] MEDS: DOCUSATE SODIUM 100 MG CAP PO SCH ×2 (02:48→16:54)
[2016-07-31 03:51] VITALS: BP 103/60; PULSE 68; RESP 18; TEMP 98.5; O2SAT 95
[2016-07-31] MEDS: INSULIN ASPART SUPPLEMENTAL SCALE SQ SCH ×4 (05:04→21:00)
[2016-07-31] MEDS: GLIMEPIRIDE 4 MG TAB PO SCH ×2 (05:42→16:53)
[2016-07-31 06:46] LABS: AUTOMATED NEUTROPHIL # 4.7 TH/MM3 (1.8-7.7); BASOPHIL % 0.5 % (0.0-2.0); EOSINOPHIL # 0.1 TH/MM3 (0-0.4); EOSINOPHIL % 2.2 % (0.0-4.0); HEMATOCRIT 36.5 % (39.0-51.0); HEMO FLAGS DIFF FINAL; LYMPH % 12.1 % (9.0-44.0); LYMPHOCYTE # 0.8 TH/MM3 (1.0-4.8); MEAN CELL VOLUME 86.2 FL (80.0-100.0); MEAN CORPUSCULAR HEMOGLOBIN 28.2 PG (27.0-34.0); MEAN CORPUSCULAR HGB CONC 32.6 % (32.0-36.0); MONO % 12.4 % (0.0-8.0); NEUT % 72.8 % (16.0-70.0); PLATELET COUNT 123 TH/MM3 (150-450); RED BLOOD COUNT 4.23 MIL/MM3 (4.50-5.90); RED CELL DISTRIBUTION WIDTH 17.6 % (11.6-17.2); WHITE BLOOD COUNT 6.5 TH/MM3 (4.0-11.0)
[2016-07-31 07:16] LABS: BICARBONATE 25.5 MEQ/L (21.0-32.0)
[2016-07-31 08:00] VITALS: BP 220/176; PULSE 72; RESP 20; TEMP 97; O2SAT 97
[2016-07-31] MEDS: METOPROLOL TARTRATE 50 MG TAB PO SCH ×3 (08:26→17:08)
[2016-07-31] MEDS: LEVOTHYROXINE SODIUM 25 MCG TAB PO SCH (08:26)
[2016-07-31] MEDS: AMIODARONE 200 MG TAB PO SCH (08:26)
[2016-07-31] MEDS: DONEPEZIL HCL 5 MG TAB PO SCH (08:26)
[2016-07-31] MEDS: ASPIRIN 81 MG CHEW TAB CHEW SCH (08:26)
[2016-07-31] MEDS: LISINOPRIL 20 MG TAB PO SCH ×2 (08:27→22:28)
[2016-07-31] MEDS: FOLIC ACID 1 MG TAB PO SCH (08:27)
[2016-07-31] MEDS: SERTRALINE HCL 50 MG TAB PO SCH (08:27)
[2016-07-31] MEDS: PANTOPRAZOLE SOD 40 MG DELAYED RELEASE TAB PO SCH (08:27)
[2016-07-31] MEDS: GABAPENTIN 100 MG CAP PO SCH ×3 (08:27→17:07)
[2016-07-31] MEDS ORDERED: LISINOPRIL 20 MG TAB PO SCH (09:00)
[2016-07-31] MEDS ORDERED: ENOXAPARIN SODIUM 40 MG/0.4 ML SYRINGE SQ SCH (09:00)
[2016-07-31 11:32] VITALS: BP 123/60; PULSE 85; RESP 20; TEMP 98.3; O2SAT 95
--- NOTE | 2016-07-31 15:15 | HHI.PR ---
Subjective Remarks No chest pain No SOB Diarrhea today No Headache Weakness when OOB (Tashia Palacios) Objective Objective Results - Vital Signs Date Time Temp Pulse Resp B/P Pulse Ox O2 Delivery O2 Flow Rate FiO2 07/31/16 11:32 98.3 85 20 123/60 95 07/31/16 08:00 97.0 72 20 220/176 97 07/31/16 03:51 98.5 68 18 103/60 95 07/31/16 00:25 98.3 63 20 107/60 94 07/30/16 20:00 100.2 75 18 126/61 95 07/30/16 20:00 74 07/30/16 15:50 100.5 87 18 130/60 93 07/30/16 15:08 900 18 96 Room Air I/O 07/30/16 07/30/16 07/30/16 07/31/16 07/31/16 07/31/16 07:00 15:00 23:00 07:00 15:00 23:00 Intake Total 242 ml 200 ml Output Total 200 ml 300 ml 325 ml Balance -200 ml -58 ml -125 ml Intake Oral 240 ml 200 ml IV Total 2 ml Output Urine Total 200 ml 300 ml 325 ml # Voids 2 (Tashia Palacios) Result Diagram: 07/31/1648 07/31/16 0548 Other Results Last Impressions Chest X-Ray 07/30/1617 Signed Impressions: Service Date/Time: July 07:28 - CONCLUSION: Cardiomegaly. No acute abnormality seen. Ethan Rodriguez MD Medications and IVs Active Medications Amiodarone HCl (Cordarone) 200 mg DAILY PO Last administered on 07/31/16 08:26 ; Admin Dose 200 MG; Start 07/30/16 at 20:00 Amlodipine Besylate (Norvasc) 5 mg Q6H PRN PO; Start 07/30/16 at 19:15 Aspirin (Aspirin Chew) 81 mg DAILY CHEW Last administered on 07/31/16 08:26; Admin Dose 81 MG; Start 07/31/16 at 09:00 Atorvastatin Calcium (Lipitor) 80 mg HS PO Last administered on 07/30/16 21:16 ; Admin Dose 80 MG; Start 07/30/16 at 21:00 Donepezil HCl (Aricept) 10 mg DAILY PO Last administered on 07/31/16 08:26; Admin Dose 10 MG; Start 07/31/16 at 09:00 Enoxaparin Sodium (Lovenox Inj) 30 mg Q24H SQ; Start 08/01/16 at 09:00 Enoxaparin Sodium (Lovenox Inj) 40 mg Q24H SQ Last administered on 07/31/16 08: 27; Admin Dose 40 MG; Start 07/31/16 at 09:00; Stop 07/31/16 at 13:26; Status DC Folic Acid (Folate) 1 mg DAILY PO Last administered on 07/31/16 08:27; Admin Dose 1 MG; Start 07/31/16 at 09:00 Glimepiride (Amaryl) 4 mg BIDAC PO Last administered on 07/30/16 17:33; Admin Dose 4 MG; Start 07/30/16 at 16:00 IV Flush (NS Flush) 2 ml BID FLUSH Last administered on 07/30/16 21:16; Admin Dose 2 ML; Start 07/30/16 at 21:00 Levothyroxine Sodium (Synthroid) 25 mcg DAILY PO Last administered on 07/31/16 08:26; Admin Dose 25 MCG; Start 07/31/16 at 09:00 Lisinopril (Prinivil) 20 mg BID PO Last administered on 07/31/16 08:27; Admin Dose 20 MG; Start 07/30/16 at 21:00 Lisinopril (Prinivil) 20 mg DAILY PO; Start 07/31/16 at 09:00; Stop 07/31/16 at 09:00; Status DC Metoprolol Tartrate (Lopressor) 50 mg BID PO; Start 07/30/16 at 21:00; Stop at 21:00; Status DC Metoprolol Tartrate (Lopressor) 50 mg TID PO Last administered on 07/31/16 12: 56; Admin Dose 50 MG; Start 07/30/16 at 20:00 Montelukast Sodium (Singulair) 10 mg HS PO Last administered on 07/30/16 21:17 ; Admin Dose 10 MG; Start 07/30/16 at 21:00 Pantoprazole Sodium (Protonix) 40 mg DAILY PO Last administered on 07/31/16 08: 27; Admin Dose 40 MG; Start 07/31/16 at 09:00 Sertraline HCl (Zoloft) 50 mg DAILY PO Last administered on 07/31/16 08:27; Admin Dose 50 MG; Start 07/31/16 at 09:00 Tamsulosin HCl (Flomax) 0.4 mg HS PO Last administered on 07/30/16 21:16; Admin Dose 0.4 MG; Start 07/30/16 at 21:00 (Tashia Palacios) ROS General: Fatigue, Weakness, Other (10 point review done Positives noted are diarrhea, generalized weakness when ambulating short distances. Fatigue. All other systems negative) GI: Diarrhea (Tashia Palacios) Physical Exam Physical Exam PHYSICAL EXAMINATION GENERAL: This is a slim, well-nourished male who is sitting up in chair today briefly. Appears to be in no acute distress. He is alert and awake X 4, but very [place]. HEAD: Normocephalic without any lesion or mass noted. Facial features appear symmetric. OROPHARYNGEAL: Oropharynx without erythema or edema, dry NECK: Supple. No nuchal rigidity or lymphadenopathy. Trachea midline without deviation. CARDIAC: Regular rhythm, regular rate, S1 and S2 are heard with gr. systolic Murmur throughout precordial; no gallops or rubs. LUNGS: Clear to auscultation bilaterally. No wheeze, Few rhonchi in anterior buck No rales. No use of accessory muscles on inspiration or expiration. ABDOMEN: , flat, Soft, nontender, no organomegaly or masses. Bowel sounds are heard in all four quadrants. No rebound. No guarding. EXTREMITIES: No edema. Pulses equal bilateral. No cyanosis. NEUROLOGICAL: Patient mood and affect appropriate. No focal deficit, awake , alert , responds to simple questions SKIN:Warm and moist,dry Objective Remarks -Im ok I guess, except for this diarrhea. (Tashia Palacios) A/P Diagnosis: (1) Atrial flutter (2) Afib (3) CKD (chronic kidney disease) stage 3, GFR 30-59 ml/min (4) HTN (hypertension) (5) CAD (coronary artery disease) (6) Hyperlipidemia (7) Ischemic cardiomyopathy Assessment and Plan Assessment and Plan Problem List: (1) Atrial flutter (2) Afib (3) CKD (chronic kidney disease) stage 3, GFR 30-59 ml/min (4) HTN (hypertension) (5) CAD (coronary artery disease) (6) Hyperlipidemia (7) Ischemic cardiomyopathy 8. Diarrhea Assessment and Plan Monitor with continuous Telemetry, vital signs and notes any acute changes. Start PO Cardizem DVT and PUD prophylaxis of ASA and Lovenox Cardiology consult for expert opinion of new onset Aflutter, Afib pending cardiac echo Monitor labs for any renal function acute changes. PO hydration encouraged Home meds reconciled Accuchecks and sliding scale for DM management, 1800 ADA diet. EKGs for any acute changes or chest pain Diarrhea today X 1, large amount. Stool softner D/C'd. Will observe for any further bouts and possible check for Cdiff if doesnt resolve, Please note is going to bring in living will, but for now pt. is Full code , Full aggressive care Noted on chart. Discussed With: Nurse RN, patient D/W Dr. Dumont, pt seen on his behalf Discharge Planning Home with . Discussed With: Nurse, Other (, Dr. Dumont) (Tashia Palacios) Assessment and Plan PT IS SEEN & EXAMINED D/W pt D/W TASHIA I CALLED PT'S , SHE WAS ON THE WAY TO HOSPITAL I THAN MET W HER WHEN SHE ARRIVED HERE, d/w findings w her in detail pt has hx hx bladder ca being followed by dr osullivan s/p " surgery " s/p recent [sound's like ] cystoscopy last week at Dr Osullivan's office , it was ok a fib rate controlled, pt & are against AC , pt bled last time w Eliquis, they just want ASA R/B were explained to them card input appreciated d/w tashia agree w above cont current tx ' PT eval ss for d/c planning will f/u (Neelima Dumont MD) Problem Qualifiers (1) Atrial flutter: Qualified Code: I48.4 - Atypical atrial flutter (2) Afib: Qualified Code: I48.1 - Persistent atrial fibrillation (3) HTN (hypertension): Qualified Code: I10 - Essential hypertension (4) CAD (coronary artery disease): (5) Hyperlipidemia: Qualified Code: E78.5 - Hyperlipidemia, unspecified hyperlipidemia type Tashia Palacios Jul 31, 2016 15:15 Neelima Dumont MD Jul 31, 2016 16:26 Qualified Code: E78.5 - Hyperlipidemia, unspecified hyperlipidemia type Tashia Palacios Jul 31, 2016 15:15
[2016-07-31 16:00] VITALS: BP 119/58; PULSE 79; RESP 20; TEMP 98.1; O2SAT 97
[2016-07-31] MEDS: SODIUM CHLOR 0.9% 1000 ML INJ 1,000 ML IV SCH (17:06)
[2016-07-31 20:00] VITALS: BP 119/57; PULSE 68; RESP 18; TEMP 98.1; O2SAT 96
[2016-07-31] MEDS: TAMSULOSIN HCL 0.4 MG CAP PO SCH (22:28)
[2016-07-31] MEDS: ATORVASTATIN 80 MG TAB PO SCH (22:28)
[2016-07-31] MEDS: MONTELUKAST SODIUM 10 MG TAB PO SCH (22:28)
[2016-07-31] MEDS: SODIUM CHLORIDE 0.9% FLUSH 5 ML FLUSH FLUSH SCH (22:29)
--- NOTE | 2016-07-31 22:35 | EKG ---
Date Performed: 07/31/2016 Time Performed: 09:54:26 PTAGE: 81 years EKG: ATRIAL FIBRILLATION WITH ABERRANT CONDUCTION OR VENTRICULAR PREMATURE COMPLEXES NONSPECIFIC T-WAVE ABNORMALITY ABNORMAL RHYTHM ECG PREVIOUS TRACING : 07/31/2016 02.45 DOCTOR: Christina Vera Interpretating Date/Time 07/31/2016 22:33:45
--- NOTE | 2016-07-31 22:42 | EKG ---
Date Performed: 07/31/2016 Time Performed: 02:45:10 PTAGE: 81 years EKG: Atrial fibrillation. Prolonged QT interval Abnormal ECG PREVIOUS TRACING : 07/31/2016 02.43 DOCTOR: Christina Vera Interpretating Date/Time 07/31/2016 22:40:09
--- NOTE | 2016-07-31 22:45 | EKG ---
Date Performed: 07/30/2016 Time Performed: 21:25:29 PTAGE: 81 years EKG: ATRIAL FIBRILLATION NONSPECIFIC T-WAVE ABNORMALITY ABNORMAL RHYTHM ECG PREVIOUS TRACING : 07/30/2016 15.00 DOCTOR: Christina Vera Interpretating Date/Time 07/31/2016 22:43:08
--- NOTE | 2016-07-31 22:55 | EKG ---
Date Performed: 07/30/2016 Time Performed: 15:00:26 PTAGE: 81 years EKG: ATRIAL Flutter NONSPECIFIC T-WAVE ABNORMALITY ABNORMAL RHYTHM ECG PREVIOUS TRACING : 07/30/2016 06.19 DOCTOR: Christina Vera Interpretating Date/Time 07/31/2016 22:48:46
[2016-08-01] VITALS: BP 144/65; PULSE 71; RESP 19; TEMP 97.7; O2SAT 94
[2016-08-01] MEDS: SODIUM CHLOR 0.9% 1000 ML INJ 1,000 ML IV SCH (02:04)
[2016-08-01] MEDS: DOCUSATE SODIUM 100 MG CAP PO SCH (02:11)
[2016-08-01 04:00] VITALS: BP 153/69; PULSE 80; RESP 19; TEMP 97.1; O2SAT 93
[2016-08-01] MEDS: INSULIN ASPART SUPPLEMENTAL SCALE SQ SCH (06:16)
[2016-08-01 07:22] LABS: HEMATOCRIT 33.1 % (39.0-51.0); MEAN CELL VOLUME 85.2 FL (80.0-100.0); MEAN CORPUSCULAR HEMOGLOBIN 28.1 PG (27.0-34.0); MEAN CORPUSCULAR HGB CONC 32.9 % (32.0-36.0); PLATELET COUNT 132 TH/MM3 (150-450); RED BLOOD COUNT 3.89 MIL/MM3 (4.50-5.90); RED CELL DISTRIBUTION WIDTH 17.4 % (11.6-17.2); REVIEW FLAG FINAL; WHITE BLOOD COUNT 6.1 TH/MM3 (4.0-11.0)
--- NOTE | 2016-08-01 07:46 | HHI.PR ---
Subjective Remarks No chest pain No SOB No further diarrhea No Headache Weakness when OOB (Tashia Palacios) Objective Objective Results - Vital Signs Date Time Temp Pulse Resp B/P Pulse Ox O2 Delivery O2 Flow Rate FiO2 08/01/16 04:00 97.1 80 19 153/69 93 08/01/16 00:00 97.7 71 19 144/65 94 07/31/16 20:00 98.1 68 18 119/57 96 07/31/16 16:00 98.1 79 20 119/58 97 07/31/16 11:32 98.3 85 20 123/60 95 07/31/16 08:00 97.0 72 20 220/176 97 I/O 07/31/16 07/31/16 07/31/16 08/01/16 08/01/16 08/01/16 07:00 15:00 23:00 07:00 15:00 23:00 Intake Total 200 ml 840 ml 1199 ml 894 ml Output Total 325 ml 400 ml 200 ml 350 ml Balance -125 ml 440 ml 999 ml 544 ml Intake Oral 200 ml 840 ml 720 ml 210 ml IV Total 479 ml 684 ml Output Urine Total 325 ml 400 ml 200 ml 350 ml # Voids 1 # Bowel Movements 1 1 1 (Tashia Palacios) Result Diagram: 08/01/16 0615 07/31/16 0548 ROS General: Weakness (weakness improving), Other (10 point ROS done. Positive finding of weakness is improving with patient being OOB. Otherwise unremarkable. No further diarrhea.) (Tashia Palacios) Physical Exam Physical Exam GENERAL: This is a slim, well-nourished male resting in bed. Appears to be in no acute distress. He is alert and awake X 4, but very [place]. HEAD: Normocephalic without any lesion or mass noted. Facial features appear symmetric. OROPHARYNGEAL: Oropharynx without erythema or edema, dry NECK: Supple. No nuchal rigidity or lymphadenopathy. Trachea midline without deviation. CARDIAC: Regular rhythm, regular rate, S1 and S2 are heard with gr. systolic Murmur throughout precordial; no gallops or rubs. LUNGS: Clear to auscultation bilaterally. No wheeze, Few rhonchi in anterior buck No rales. No use of accessory muscles on inspiration or expiration. ABDOMEN: , flat, Soft, nontender, no organomegaly or masses. Bowel sounds are heard in all four quadrants. No rebound. No guarding. EXTREMITIES: No edema. Pulses equal bilateral. No cyanosis. NEUROLOGICAL: Patient mood and affect appropriate. No focal deficit, awake , alert , responds to simple questions SKIN:Warm and moist,dry, turgor thin. Objective Remarks My blood sugar was 67 this am. I ate a snack. Objective Remarks Im doing OK I guess. (Tashia Palacios) A/P Diagnosis: (1) Atrial flutter (2) Afib (3) CKD (chronic kidney disease) stage 3, GFR 30-59 ml/min (4) HTN (hypertension) (5) CAD (coronary artery disease) (6) Hyperlipidemia (7) Ischemic cardiomyopathy Assessment and Plan Assessment and Plan Problem List: (1) Atrial flutter (2) Afib (3) CKD (chronic kidney disease) stage 3, GFR 30-59 ml/min (4) HTN (hypertension) (5) CAD (coronary artery disease) (6) Hyperlipidemia (7) Ischemic cardiomyopathy 8. Diarrhea Assessment and Plan Monitor with continuous Telemetry, vital signs and notes any acute changes. Start PO Cardizem DVT and PUD prophylaxis of ASA and Lovenox, and Protonix. new onset Aflutter, Afib , HR 80s, more regular this am. cardiac echo Monitor labs for any renal function acute changes. PO hydration encouraged Home meds reconciled Accuchecks and sliding scale for DM management, 1800 ADA diet. Added HS snack to go to his room. Patient states blood sugar 67, ate a snack, and went to 107. EKGs for any acute changes or chest pain. Rhythm is in the 80s, will do EKG for comparison. Stool softner D/C'd. No further diarrhea. No further testing for now. pt. is Full code, Full aggressive care Noted on chart. Discussed With: Nurse RN, patient D/W Dr. Dumont, pt seen on his behalf Discharge Planning Home with . Discussed With: Nurse, Other (, Dr. Dumont) (Tashia Palacios) Assessment and Plan pt is seen & examined d/w PT d/w Tashia box to SR feels OK had 1 BM yesterday & 1 BM this am appetite is ok ambulating independently in the room offers no other c/o medically stable for d/c d/c home today see [facility] see orders f/u pcp f/u card (Neelima Dumont MD) Problem Qualifiers (1) Atrial flutter: Qualified Code: I48.4 - Atypical atrial flutter (2) Afib: Qualified Code: I48.1 - Persistent atrial fibrillation (3) HTN (hypertension): Qualified Code: I10 - Essential hypertension (4) CAD (coronary artery disease): (5) Hyperlipidemia: Qualified Code: E78.5 - Hyperlipidemia, unspecified hyperlipidemia type Tashia Palacios Aug 01, 2016 07:46 Neelima Dumont MD Aug 01, 2016 10:23
[2016-08-01 07:58] LABS: BICARBONATE 26.1 MEQ/L (21.0-32.0)
[2016-08-01 08:00] VITALS: BP 140/66; PULSE 69; PULSE 71; RESP 18; TEMP 97.5; O2SAT 96
[2016-08-01] MEDS ORDERED: ENOXAPARIN SODIUM 30 MG/0.3 ML SYRINGE SQ SCH (09:00)
[2016-08-01] MEDS: SODIUM CHLORIDE 0.9% FLUSH 5 ML FLUSH FLUSH SCH (09:00)
[2016-08-01] MEDS: AMIODARONE 200 MG TAB PO SCH (09:25)
[2016-08-01] MEDS: GLIMEPIRIDE 4 MG TAB PO SCH (09:25)
[2016-08-01] MEDS: LISINOPRIL 20 MG TAB PO SCH (09:25)
[2016-08-01] MEDS: SERTRALINE HCL 50 MG TAB PO SCH (09:25)
[2016-08-01] MEDS: LEVOTHYROXINE SODIUM 25 MCG TAB PO SCH (09:25)
[2016-08-01] MEDS: GABAPENTIN 100 MG CAP PO SCH (09:25)
[2016-08-01] MEDS: PANTOPRAZOLE SOD 40 MG DELAYED RELEASE TAB PO SCH (09:25)
[2016-08-01] MEDS: METOPROLOL TARTRATE 50 MG TAB PO SCH (09:25)
[2016-08-01] MEDS: FOLIC ACID 1 MG TAB PO SCH (09:25)
[2016-08-01] MEDS: DONEPEZIL HCL 5 MG TAB PO SCH (09:25)
[2016-08-01] MEDS: ASPIRIN 81 MG CHEW TAB CHEW SCH (09:25)
[2016-08-01] MEDS ORDERED: METO-426 PO (10:27)
[2016-08-01] MEDS ORDERED: AMIO200T PO (10:27)
--- NOTE | 2016-08-01 15:16 | EC ---
Study Study Date:07/31/2016 STUDY CONCLUSIONS SUMMARY - Left ventricle: The cavity size was normal. Systolic function was probably normal. The estimated ejection fraction was in the range of 50% to 55%. - Aortic valve: Mild regurgitation directed centrally in the LVOT. Valve area: 3.63cm^2 (Vmax). - Mitral valve: Mild regurgitation. If LV function is below 40, please consider prescribing an ACEI or ARB or document rationale for non-use. PROCEDURE DATA STUDY STATUS: Elective. Procedure: Transthoracic echocardiography. Image quality was good. Scanning was performed from the parasternal, apical, and subcostal acoustic windows. Study completion: The patient tolerated the procedure well. Transthoracic echocardiography. M-mode, complete 2D, complete spectral Doppler, and color Doppler. Height: Height: 67in. Weight: Weight: 166.7lb. Body mass index: BMI: 26.2kg/m^2. Body surface area: BSA: 1.87m^2. Patient status: Inpatient. CARDIAC ANATOMY LEFT VENTRICLE: The cavity size was normal. Systolic function was probably normal. The estimated ejection fraction was in the range of 50% to 55%. Images were inadequate for LV wall motion assessment. AORTIC VALVE: The valve appears to be grossly normal. Doppler: There was no stenosis. Mild regurgitation directed centrally in the LVOT. Valve area: 3.63cm^2 (Vmax). Indexed valve area: 1.94cm^2/m^2 (Vmax). MITRAL VALVE: The valve appears to be grossly normal. Doppler: There was no evidence for stenosis. Mild regurgitation. PULMONIC VALVE: Poorly visualized. Doppler: There was no evidence for stenosis. Trace regurgitation. TRICUSPID VALVE: The valve appears to be grossly normal. Doppler: There was no evidence for stenosis. Trace regurgitation. Patient weight: 166.7lb _Ejection fraction:_ 65-75% _Fractional shortening:_ 32% up to 5Kg 5-11.5Kg 11.6-22.9Kg 23-45Kg 45-57Kg Aortic Root 7-13 <17 13-22 17-27 17-27 LA diam 6-13 <23 24-38 33-47 37-40 RVID 10-17 7-15 7-15 7-18 8-17 LVIDd 12-22 <32 24-38 33-47 37-40 LVPW 2-4 3-6 5-7 6-8 7-8 IVS 2-4 3-6 5-7 6-8 7-8 BASIC MEASUREMENTS ADULT NORMAL Left ventricle LV internal dimension, ED, chordal *52.8 mm 43-52 level, PLAX LV internal dimension, ES, chordal *39.2 mm 23-38 level, PLAX Fractional shortening, chordal level, *26 % >29 PLAX LV posterior wall thickness, ED 10.4 mm IVS/LVPW ratio, ED 0.88 <1.3 Ventricular septum Septal thickness, ED 9.16 mm Aortic valve Leaflet separation 20 mm 15-26 BASIC MEASUREMENTS ADULT NORMAL Aortic valve Leaflet separation 20 mm 15-26 Aorta Root diameter, ED *19 mm 20-37 Left atrium Anterior-posterior dimension, ES 34 mm 19-40 Anterior-posterior dimension index, ES 1.82 cm/m^2 <2.2 LA/aortic root ratio 1.79 DOPPLER MEASUREMENTS ADULT NORMAL Main pulmonary artery Pressure, S 11 mm Hg =30 Aortic valve Peak velocity, S 89.2 cm/s Valve area, Vmax 3.63 cm^2 Valve area index, Vmax 1.94 cm^2/m^2 Regurgitant velocity, ED 384 cm/s Regurgitant deceleration 1540 cm/s^2 Regurgitant pressure half-time 737 ms Regurgitant gradient, ED 59 mm Hg Mitral valve Maximal regurgitant velocity 362 cm/s Tricuspid valve Regurgitant peak velocity 129 cm/s Peak RV-RA gradient, S 7 mm Hg Maximal regurgitant velocity 129 cm/s Systemic veins Estimated CVP 10 mm Hg Right ventricle RV pressure, S 17 mm Hg <30 Pulmonic valve Peak velocity, S 122 cm/s LEGEND: Mean values are shown as u=mean value. Asterisk (*) perez values outside specified normal range. Prepared and signed by [place] [id number]
--- NOTE | 2016-08-01 19:14 | HHI.DS ---
Discharge Summary Admission Date Jul 30, 2016 at 09:02 Discharge Date: Aug 01, 2016 Admitting Diagnosis Aflutter (1) Atrial flutter Diagnosis: Principal (2) Afib Diagnosis: Principal (3) CKD (chronic kidney disease) stage 3, GFR 30-59 ml/min Diagnosis: Principal (4) HTN (hypertension) Diagnosis: Principal (5) CAD (coronary artery disease) Diagnosis: Secondary (6) Hyperlipidemia Diagnosis: Secondary (7) Ischemic cardiomyopathy Diagnosis: Secondary Procedures none Brief History This was an 81-year-old white male with multi-medical comorbid conditions including coronary artery disease, dementia, GI bleed, diabetes, and [place]. Patient had been in his usual condition up until admission am. He awoke his around 645 with complaints of extreme weakness and shortness of breath. Patient was unable to get out of the bed without major assistance and had urinated on himself. was unable to help patient get up to the bathroom, but she states he ended up crawling most of the way. She stated his is forehead was clammy to touch, but he did not complain of any chest pain. Patient also complained of some events of constipation in the recent past, and GI distress. Patient did have complaints of mild headache but denies any cough or diarrhea. Patient was a poor historian due to his dementia so is the main historian in the emergency room. CBC/BMP: 08/01/16 0615 08/01/16 0615 Significant Findings Laboratory Tests Test 07/30/16 07/30/16 07/30/16 07/30/16 07:35 07:45 12:18 20:59 Red Blood Count 4.01 MIL/MM3 (4.50-5.90) Hemoglobin 11.2 GM/DL (13.0-17.0) Hematocrit 34.4 % (39.0-51.0) Red Cell Distribution Width 17.5 % (11.6-17.2) Platelet Count 135 TH/MM3 (150-450) Neutrophils (%) (Auto) 79.0 % (16.0-70.0) Lymphocytes (%) (Auto) 6.9 % (9.0-44.0) Monocytes (%) (Auto) 12.5 % (0.0-8.0) Lymphocytes # (Auto) 0.5 TH/MM3 (1.0-4.8) Prothrombin Time 11.8 SEC (9.8-11.6) Creatinine 1.75 MG/DL (0.60-1.30) Estimat Glomerular Filtration 38 ML/MIN (>89) Rate Random Glucose 237 MG/DL (74-106) Calcium Level 8.2 MG/DL (8.5-10.1) Total Protein 6.3 GM/DL (6.4-8.2) Albumin 2.8 GM/DL (3.4-5.0) Cholesterol Level 112 MG/DL (120-200) Urine Protein 30 mg/dL (NEG-TRACE) Urine Glucose (UA) 1000 mg/dL (NEG) Urine Occult Blood SMALL (NEG) Urine Mucus FEW /lpf (OCC) Troponin I 0.06 NG/ML (0.02-0.05) Erythrocyte Sedimentation Rate 72 mm/hr (0-20) Test 07/31/16 08/01/16 05:48 06:15 Red Blood Count 4.23 MIL/MM3 3.89 MIL/MM3 (4.50-5.90) (4.50-5.90) Hemoglobin 11.9 GM/DL 10.9 GM/DL (13.0-17.0) (13.0-17.0) Hematocrit 36.5 % 33.1 % (39.0-51.0) (39.0-51.0) Red Cell Distribution Width 17.6 % 17.4 % (11.6-17.2) (11.6-17.2) Platelet Count 123 TH/MM3 132 TH/MM3 (150-450) (150-450) Neutrophils (%) (Auto) 72.8 % (16.0-70.0) Monocytes (%) (Auto) 12.4 % (0.0-8.0) Lymphocytes # (Auto) 0.8 TH/MM3 (1.0-4.8) Blood Urea Nitrogen 23 MG/DL (7-18) 32 MG/DL (7-18) Creatinine 2.09 MG/DL 1.92 MG/DL (0.60-1.30) (0.60-1.30) Estimat Glomerular Filtration 31 ML/MIN (>89) 34 ML/MIN (>89) Rate Calcium Level 8.4 MG/DL (8.5-10.1) PE at Discharge GENERAL: This was a slim, well-nourished male resting in bed. Appeared to be in no acute distress. He was alert and awake X 4, but very [place]. HEAD: Normocephalic without any lesion or mass noted. Facial features appear symmetric. OROPHARYNGEAL: Oropharynx without erythema or edema, dry NECK: Supple. No nuchal rigidity or lymphadenopathy. Trachea midline without deviation. CARDIAC: Regular rhythm, regular rate, S1 and S2 are heard with gr. systolic Murmur throughout precordial; no gallops or rubs. LUNGS: Clear to auscultation bilaterally. No wheeze, Few rhonchi in anterior buck No rales. No use of accessory muscles on inspiration or expiration. ABDOMEN: , flat, Soft, nontender, no organomegaly or masses. Bowel sounds are heard in all four quadrants. No rebound. No guarding. EXTREMITIES: No edema. Pulses equal bilateral. No cyanosis. NEUROLOGICAL: Patient mood and affect appropriate. No focal deficit, awake , alert , responds to simple questions SKIN:Warm and moist,dry, turgor thin. Objective Remarks My blood sugar was 67 this am. I ate a snack. Objective Remarks Im doing OK I guess. (Tashia Palacios) Hospital Course In the emergency room, patient was placed on the heart monitor which showed atrial flutter with rapid ventricular response. Patient was treated with IV Cardizem. He also was hypertensive with systolic blood pressure 196, but now has returned back into the 148 systolic range. Patient had decreased appetite noted here in the ER and states that this had been a problem for the past week. Problem list used for treatment plan includes 1. Atrial Flutter (2) Afib (3) CKD (chronic kidney disease) stage 3, GFR 30-59 ml/min (4) HTN (hypertension) (5) CAD (coronary artery disease) (6) Hyperlipidemia (7) Ischemic cardiomyopathy 8. Diarrhea Treatment regimin noted. Patient was monitored with continuous Telemetry, vital signs and noted any acute changes. PO Cardizem started for new onset Aflutter, Afib. DVT and PUD prophylaxis of ASA and Lovenox, and Protonix. cardiac echo done Labs monitored for any renal function acute changes. PO hydration encouraged Home meds reconciled Accuchecks and sliding scale for DM management, 1800 ADA diet. Added HS snacK. . EKGs ordered for any acute changes or chest pain. Stool softner D/C'd. due to diarrhea. pt. is Full code, Full aggressive care per patient wishes. Patient was ambulating and stable with rhythm and heart rate. Ready for discharge. Pt Condition on Discharge: Stable Discharge Disposition: Discharge Home Discharge Instructions DIET: Follow Instructions for: Heart Healthy Diet, Diabetic Diet Fluid Restrictions: none Activities you can perform: Weight Bearing as Keith Other Activity Instructions: fall precautions Follow up Referrals: Cardiology - 3 Weeks PCP Follow-up - 1 Week New Medications: Metoprolol Tartrate (Metoprolol Tartrate) 75 Mg Tab 75 MG PO BID a fib #60 Ref 0 TAB Amiodarone (Amiodarone) 200 Mg Tab 200 MG PO DAILY a fib #30 TAB Continued Medications: Acarbose (Acarbose) 50 Mg Tab 50 MG PO TID Blood Sugar Management #0 Ref 0 TAB Aspirin (Aspirin Childrens) 81 Mg Chew 81 MG CHEW DAILY TAB Atorvastatin (Atorvastatin) 80 Mg Tab 80 MG PO HS Cholesterol Management #0 Ref 0 TAB Carisoprodol (Carisoprodol) 350 Mg Tab 350 MG PO QID PRN PAIN #0 Ref 0 TAB Ciclopirox (Nail Lacquer) Topical (Ciclopirox (Nail Lacquer) Topical) 8% Soln 1 APPLIC TOPICAL HS FUNGAL INFECTION #0 Ref 0 BOTTLE Donepezil Hydrochloride (Donepezil Hydrochloride) 5 Mg Tab 10 MG PO DAILY Folic Acid (Folic Acid) 400 Mcg Tab 400 MCG PO DAILY Nutritional Supplement Ref 0 TAB Gabapentin (Gabapentin) 100 Mg Cap 100 MG PO TID #0 Ref 0 CAP Glimepiride (Glimepiride) 4 Mg Tab 4 MG PO BIDAC Blood Sugar Management #0 Ref 0 TAB Levothyroxine (Levothyroxine) 25 Mcg Tab 25 MCG PO DAILY Thyroid #0 Ref 0 TAB Lisinopril (Lisinopril) 20 Mg Tab 20 MG PO DAILY #0 Ref 0 TAB Memantine (Namenda) 10 Mg Tab 0 PO BID Alzheimer Disease #30 Ref 0 TAB Montelukast (Montelukast) 10 Mg Tab 10 MG PO HS #0 Ref 0 TAB Nitroglycerin SL (Nitroglycerin SL) 0.4 Mg Subl 0.4 MG SL DIRECTED ONE TABLET UNDER THE TONGUE NEEDED FOR CHEST PAIN, MAY REPEAT EVERY FIVE MINUTES FOR A TOTAL OF 3 DOSES OR CALL 911 IF NO RELIEF PRN CHEST PAIN #0 Ref 0 TAB.SL Pantoprazole (Pantoprazole) 40 Mg Tab 40 MG PO DAILY Reflux #0 Ref 0 TAB Sertraline (Sertraline) 50 Mg Tab 50 MG PO DAILY #0 Ref 0 TAB Tamsulosin (Tamsulosin) 0.4 Mg Cap 0.4 MG PO HS Manage Prostate Problems #0 Ref 0 CAP Terazosin (Terazosin) 5 Mg Cap 5 MG PO HS #0 Ref 0 CAP ([ bydureon]) 1 APPLIC SQ WEEKLY Discontinued Medications: Metoprolol Tartrate (Metoprolol Tartrate) 50 Mg Tab 50 MG PO BID #0 Ref 0 TAB Additional Information Discharge orders sent home with patient and his . Tashia Palacios Aug 01, 2016 19:14
--- NOTE | 2016-08-03 21:45 | EKG ---
Date Performed: 08/01/2016 Time Performed: 11:01:50 PTAGE: 81 years EKG: Sinus rhythm NONSPECIFIC T-WAVE ABNORMALITY BORDERLINE ECG PREVIOUS TRACING : 07/31/2016 09.54 Compared to the previous tracing, previously afib with aber margarita beats DOCTOR: Tree [place] Interpretating Date/Time 08/03/2016 21:44:17
== END 2016-08-01 12:04 | disposition home or self-care (01) ==
LOC: NEPC 07:06 → INTOOBSV 09:02 → NEDA 09:02 → N04B 15:53
PROVIDERS: ADMIT Specialist; ATTEND Specialist
DX: I48.4 Atypical atrial flutter (principal); I48.1 Persistent atrial fibrillation; I25.5 Ischemic cardiomyopathy; I49.3 Ventricular premature depolarization; I51.7 Cardiomegaly; I25.10 Atherosclerotic heart disease of native coronary artery without angina pectoris; I12.9 Hypertensive chronic kidney disease with stage 1 through stage 4 chronic kidney disease, or unspecified chronic kidney disease; N18.3 Chronic kidney disease, stage 3 (moderate); E11.22 Type 2 diabetes mellitus with diabetic chronic kidney disease; I25.2 Old myocardial infarction; J45.909 Unspecified asthma, uncomplicated; F03.90 Unspecified dementia, unspecified severity, without behavioral disturbance, psychotic disturbance, mood disturbance, and anxiety; E78.5 Hyperlipidemia, unspecified; E03.9 Hypothyroidism, unspecified; D64.9 Anemia, unspecified; E78.00 Pure hypercholesterolemia, unspecified; H91.90 Unspecified hearing loss, unspecified ear; M19.90 Unspecified osteoarthritis, unspecified site; Z72.0 Tobacco use; Z85.51 Personal history of malignant neoplasm of bladder; Z85.840 Personal history of malignant neoplasm of eye; Z86.73 Personal history of transient ischemic attack (TIA), and cerebral infarction without residual deficits; Z95.5 Presence of coronary angioplasty implant and graft
CPT/HCPCS: 71010; 80048; 80053; 80061; 81001; 82150; 82533; 82550; 82948; 83690; 83735; 84443; 84484; 85025; 85027; 85610; 85652; 85730; 93005; 93306; 96374; 96375; 97162; 99291; G0378; G8987; G8988; J0610; J1650; J1815; J3475; J7030

== ENCOUNTER 2016-11-10 20:39 | Observation (INO) | payer MEDICARE ==
[~2016-11-10 20:39] MED LIST changes: +AMIO200T PO; -APIX2.5T PO; -ARIC10TA PO; +ASPI81CH5 CHEW; -ASPI81TA82 PO; +ATOR1TAB18 PO; -ATOR80TA41 PO; +CARI350T20 PO; +CICL8SOL TOPICAL; +DONE1TAB90 PO; -EXEN2VIA SC; +FOLI400T PO; +GABA100C4 PO; +GLIM4TAB PO; -ISOS30 PO; -LEVO.025 PO; +LEVO25TA4 PO; -LISI-360 PO; +LISI-515 PO; +METO-426 PO; -METO50CR PO; +MONT10TA4 PO; -NITR.4 SL; +NITR1SUB3 SL; +PANT40TA3 PO; -RANO500 PO; +SERT-132 PO; -SUCR1TAB PO; +TAMS0.4C4 PO; +TERA5CAP3 PO; -UMEC1AER INH; -ZOLO20CO PO; +bydureon SQ
[2016-11-10 20:47] VITALS: BP 162/75; PULSE 75; RESP 16; TEMP 98.2; O2SAT 99
--- NOTE | 2016-11-10 20:55 | PD ---
HPI Chief Complaint: dizziness Time Seen by Provider: 20:52 Travel History International Travel<30 days: No Contact w/Intl Traveler<30days: No History of Present Illness HPI Patient comes in for evaluation of dizziness and shaking that occurred shortly prior to arrival. Patient states that he went to his pain management doctor today for a pain shot for sciatica took additional pain medication when he got home and when he went to stand up he felt dizzy and started shaking. Patient denies any chest pain with this, shortness of breath, fevers, loss or change in bowel or bladder, nausea, vomiting, headache, change in vision, headache, or previous episodes like this. Denies any syncope or presyncope-like sensation. Patient reports his blood sugars have been running well was in the mid 100s today. PFSH Past Medical History Arthritis: Yes Asthma: Yes Autoimmune Disease: No Anxiety: Yes Depression: No Heart Rhythm Problems: Yes Cancer: Yes Cardiovascular Problems: Yes High Cholesterol: No Chest Pain: No Congestive Heart Failure: No COPD: No Cerebrovascular Accident: Yes Dementia: Yes Diabetes: Yes Diminished Hearing: Yes (BILATERAL) Endocrine: Yes GERD: No Genitourinary: Yes Headaches: Yes ("SOMETIMES") Hepatitis: No Hiatal Hernia: No Hypertension: Yes Immune Disorder: No Kidney Stones: No Musculoskeletal: Yes Neurologic: No Psychiatric: No Reproductive: No Respiratory: Yes Immunizations Current: No Migraines: No Renal Failure: No Seizures: No Sickle Cell Disease: No Sleep Apnea: No Thyroid Disease: No Ulcer: No Past Surgical History Abdominal Surgery: No AICD: No Arteriovenous Shunt: No Cardiac Surgery: Yes Ear Surgery: No Endocrine Surgery: No Eye Surgery: No Genitourinary Surgery: Yes Gynecologic Surgery: No Insulin Pump: No Joint Replacement: No Oral Surgery: No Pacemaker: No Thoracic Surgery: No Other Surgery: Yes (MASS REMOVED FROM KIDNEY AREA) Social History Alcohol Use: No Tobacco Use: No (QUIT 1979) Substance Use: No Allergies-Medications (Allergen,Severity, Reaction): Coded Allergies: Eliquis (Verified Allergy, Severe, bleeding, 11/10/16) requests not to be given Levaquin (Verified Allergy, Intermediate, RASH, 11/10/16) Penicillin (Verified Allergy, Unknown, UNKNOWN REACTION, 11/10/16) Reported Meds & Prescriptions Reported Meds & Active Scripts Active Amiodarone (Amiodarone HCl) 200 Mg Tab 200 Mg PO DAILY Reported Iron (Ferrous Sulfate) 50 Mg Tab 65 Mg PO DAILY Metoprolol Tartrate 25 Mg Tab 25 Mg PO TID Pantoprazole (Pantoprazole Sodium) 40 Mg Tab 40 Mg PO DAILY Glimepiride 4 Mg Tab 4 Mg PO BIDAC Gabapentin 100 Mg Cap 100 Mg PO TID Terazosin (Terazosin HCl) 5 Mg Cap 5 Mg PO HS Carisoprodol 350 Mg Tab 350 Mg PO QID PRN Montelukast (Montelukast Sodium) 10 Mg Tab 10 Mg PO HS Aspirin Childrens (Aspirin) 81 Mg Chew 81 Mg CHEW DAILY Nitroglycerin SL (Nitroglycerin) 0.4 Mg Subl 0.4 Mg SL DIRECTED PRN ONE TABLET UNDER THE TONGUE NEEDED FOR CHEST PAIN, MAY REPEAT EVERY FIVE MINUTES FOR A TOTAL OF 3 DOSES OR CALL 911 IF NO RELIEF Levothyroxine (Levothyroxine Sodium) 25 Mcg Tab 25 Mcg PO DAILY Atorvastatin (Atorvastatin Calcium) 80 Mg Tab 80 Mg PO HS Donepezil Hydrochloride 5 Mg Tab 10 Mg PO DAILY Namenda (Memantine) 10 Mg Tab 0 PO BID Lisinopril 20 Mg Tab 20 Mg PO DAILY Acarbose 50 Mg Tab 50 Mg PO TID [ bydureon] 1 Applic SQ WEEKLY Review of Systems Except as stated in HPI: all other systems reviewed are Neg Physical Exam Narrative GENERAL: Well-developed, well nourished, in no acute distress, and non-ill appearing. SKIN: Focused skin assessment warm and dry. HEAD: Atraumatic. Normocephalic. EYES: Pupils equal and round. EOMI. No scleral icterus. No injection or drainage. ENT: No nasal bleeding or discharge. Mucous membranes pink and moist. NECK: Trachea midline. Supple. No nuclear rigidity. CARDIOVASCULAR: Regular rate and rhythm. No murmur appreciated. RESPIRATORY: No accessory muscle use. No respiratory distress. Clear to auscultation. Breath sounds equal bilaterally. GASTROINTESTINAL: Abdomen soft, non-tender, nondistended. Hepatic and splenic margins not palpable. No pulsatile mass. MUSCULOSKELETAL: No obvious deformities. No clubbing. No cyanosis. No edema. Full range of motion. NEUROLOGICAL: Awake and alert. No obvious cranial nerve deficits. Motor grossly within normal limits. Normal speech. PSYCHIATRIC: Appropriate mood and affect; insight and judgment normal. Data Data Last Documented VS Vital Signs Date Time Temp Pulse Resp B/P Pulse Ox O2 Delivery O2 Flow Rate FiO2 11/10/16 21:45 75 16 158/73 78 164/76 86 193/86 11/10/16 21:15 99 2 11/10/16 20:47 98.2 Orders Electrocardiogram (11/10/16 20:49) Basic Metabolic Panel (Bmp) (11/10/16 20:49) Complete Blood Count With Diff (11/10/16 20:49) Magnesium (Mg) (11/10/16 20:49) Ckmb (Isoenzyme) Profile (11/10/16 20:49) Troponin I (11/10/16 20:49) Act Partial Throm Time (Ptt) (11/10/16 20:49) Prothrombin Time / Inr (Pt) (11/10/16 20:49) Urinalysis - C+S If Indicated (11/10/16 20:49) Chest, Single Ap (11/10/16 20:49) Ecg Monitoring (11/10/16 20:49) Iv Access Insert/Monitor (11/10/16 20:49) Oximetry (11/10/16 20:49) Sodium Chloride 0.9% Flush (Ns Flush) (11/10/16 21:00) Orthostatic Vital Signs (11/10/16 20:49) Sodium Chlorid 0.9% 500 Ml Inj (Ns 500 M (11/10/16 21:15) Sodium Chlorid 0.9% 500 Ml Inj (Ns 500 M (11/10/16 22:15) Labs Laboratory Tests Test 11/10/16 11/10/16 21:10 21:35 White Blood Count 6.4 TH/MM3 Red Blood Count 4.55 MIL/MM3 Hemoglobin 12.8 GM/DL Hematocrit 40.1 % Mean Corpuscular Volume 88.3 FL Mean Corpuscular Hemoglobin 28.1 PG Mean Corpuscular Hemoglobin 31.9 % Concent Red Cell Distribution Width 23.4 % Platelet Count 101 TH/MM3 Mean Platelet Volume 7.7 FL Neutrophils (%) (Auto) 89.0 % Lymphocytes (%) (Auto) 7.6 % Monocytes (%) (Auto) 2.7 % Eosinophils (%) (Auto) 0.3 % Basophils (%) (Auto) 0.4 % Neutrophils # (Auto) 5.7 TH/MM3 Lymphocytes # (Auto) 0.5 TH/MM3 Monocytes # (Auto) 0.2 TH/MM3 Eosinophils # (Auto) 0.0 TH/MM3 Basophils # (Auto) 0.0 TH/MM3 CBC Comment AUTO DIFF Differential Comment AUTO DIFF CONFIRMED Platelet Estimate LOW Platelet Morphology Comment NORMAL Ovalocytes 1+ Prothrombin Time 11.4 SEC Prothromb Time International 1.0 RATIO Ratio Activated Partial 25.3 SEC Thromboplast Time Sodium Level 140 MEQ/L Potassium Level 4.6 MEQ/L Chloride Level 105 MEQ/L Carbon Dioxide Level 24.2 MEQ/L Anion Gap 11 MEQ/L Blood Urea Nitrogen 22 MG/DL Creatinine 1.89 MG/DL Estimat Glomerular Filtration 34 ML/MIN Rate Random Glucose 418 MG/DL Calcium Level 8.3 MG/DL Magnesium Level 2.0 MG/DL Total Creatine Kinase 61 U/L Troponin I 0.02 NG/ML Urine Color YELLOW Urine Turbidity CLEAR Urine pH 5.5 Urine Specific [place] 1.028 Urine Protein TRACE mg/dL Urine Glucose (UA) 1000 mg/dL Urine Ketones NEG mg/dL Urine Occult Blood NEG Urine Nitrite NEG Urine Bilirubin NEG Urine Urobilinogen LESS THAN 2.0 MG/DL Urine Leukocyte Esterase NEG Urine RBC LESS THAN 1 /hpf Urine Mucus FEW /lpf Microscopic Urinalysis Comment CULT NOT INDICATED MDM Medical Decision Making Medical Screen Exam Complete: Yes Emergency Medical Condition: Yes Interpretation(s) EKG reviewed by Dr. Dietz shows sinus rhythm with ventricular rate 73. No STEMI. Differential Diagnosis Dehydration, polypharmacy, electrolyte abnormality, arrhythmia, other Narrative Course 2199 patient at bedside states that she patient Valium prior to going to the pain doctor where he received injections. Patient was aware the patient took additional pain medication after getting home. reports patient was shaking and had to walk using a chair. States she had help get into bed after which he stopped shaking. Patient was seen and examined. Laboratory and studies were obtained and reviewed. Patient was hydrated with IV fluid. Discussed all of eyes and plan of care with Dr. Dietz, recommend inpatient observation for further treatment and evaluation. Discussed all findings and plan of care with patient and his . Patient is agreeable for admission. All questions were answered. Patient remained stable throughout emergency department course. Physician Communication Physician Communication [phone] discussed patient with Ethan Perez PA-C for Dr. Dumont, who is agreeable to admit the patient. Diagnosis Primary Impression: Dizziness Additional Impression: Hyperglycemia Condition: Stable Orlando Jones November 10, 2016 20:55
[2016-11-10] MEDS ORDERED: SODIUM CHLORIDE 0.9% FLUSH 10 ML FLUSH IVF PRN (21:00)
[2016-11-10 21:15] VITALS: O2SAT 99
[2016-11-10] MEDS ORDERED: SODIUM CHLORID 0.9% 500 ML INJ 500 ML IV ONE ×2 (21:15→22:15)
[2016-11-10 21:33] LABS: AUTOMATED NEUTROPHIL # 5.7 TH/MM3 (1.8-7.7); BASOPHIL % 0.4 % (0.0-2.0); EOSINOPHIL % 0.3 % (0.0-4.0); HEMATOCRIT 40.1 % (39.0-51.0); LYMPH % 7.6 % (9.0-44.0); LYMPHOCYTE # 0.5 TH/MM3 (1.0-4.8); MEAN CELL VOLUME 88.3 FL (80.0-100.0); MEAN CORPUSCULAR HEMOGLOBIN 28.1 PG (27.0-34.0); MEAN CORPUSCULAR HGB CONC 31.9 % (32.0-36.0); MONO % 2.7 % (0.0-8.0); PLATELET COUNT 101 TH/MM3 (150-450); RED BLOOD COUNT 4.55 MIL/MM3 (4.50-5.90); RED CELL DISTRIBUTION WIDTH 23.4 % (11.6-17.2); WHITE BLOOD COUNT 6.4 TH/MM3 (4.0-11.0)
[2016-11-10 21:41] LABS: APTT (PATIENT) 25.3 SEC (24.3-30.1); HEMO FLAGS AUTO DIFF; PROTHROMBIN TIME - PATIENT 11.4 SEC (9.8-11.6)
[2016-11-10 21:45] VITALS: BP_SYST 158; BP_SYST 164; BP_SYST 193; BP_DIAS 73; BP_DIAS 76; BP_DIAS 86; RESP 16
[2016-11-10 21:53] LABS: BICARBONATE 24.2 MEQ/L (21.0-32.0); POTASSIUM 4.6 MEQ/L (3.5-5.1)
[2016-11-10 22:06] LABS: OVALOCYTES 1+ (NORMAL); PLATELET ESTIMATE SMEAR LOW (NORMAL); PLATELET MORPHOLOGY NORMAL (NORMAL); SCAN/DIFF AUTO DIFF CONFIRMED
--- NOTE | 2016-11-10 22:08 | RADRPT ---
EXAM DATE/TIME: 11/10/2016 21:24 [facility] COMPARISON: CHEST SINGLE AP, July 30, 2016, 7:28. INDICATIONS : Syncope. MEDICAL HISTORY : Myocardial infarction. Hypercholesterolemia. Cerebrovascular accident. SURGICAL HISTORY : Bladder mass removal. Tumors removed from left kidney. ENCOUNTER: Initial ACUITY: 1 day PAIN SCORE: Non-responsive. LOCATION: Bilateral chest FINDINGS: A single view of the chest demonstrates the lungs to be symmetrically aerated without evidence of mas s, infiltrate or effusion. The heart size is enlarged. Osseous structures are intact. CONCLUSION: Cardiomegaly. Ethan Rodriguez MD on November 10, 2016 at 22:06 Board Certified Radiologist. This report was verified electronically.
[2016-11-10 22:09] LABS: BLOOD, URINE NEG (NEG); COMMENT (UR) CULT NOT INDICATED; CULTURE IF INDICATED CULT NOT INDICATED; GLUCOSE,URINE 1000 mg/dL (NEG); KETONE, URINE NEG (NEG); MUCUS URINE FEW /lpf (OCC); NITRITE,URINE NEG (NEG); PH, URINE 5.5 (5.0-8.5); URINE COLOR YELLOW (YELLW/STRAW)
[2016-11-10] MEDS ORDERED: FERR1TAB58 PO (22:20)
[2016-11-10] MEDS ORDERED: METO25TA3 PO (22:20)
[2016-11-10] MEDS ORDERED: SODIUM CHLOR 0.9% 1000 ML INJ 1,000 ML IV SCH (22:48)
[2016-11-10] MEDS ORDERED: NALOXONE HCL 0.4 MG/ML AMP IV PRN (23:00)
[2016-11-10] MEDS ORDERED: ONDANSETRON HCL 4 MG/2 ML VIAL IVP PRN (23:00)
[2016-11-10] MEDS ORDERED: SENNOSIDES 8.6 MG TAB PO PRN (23:00)
[2016-11-10] MEDS ORDERED: SODIUM CHLORIDE 0.9% FLUSH 10 ML FLUSH IV FLUSH PRN (23:00)
[2016-11-10] MEDS: HEPARIN SODIUM - SQ 10,000 UNITS/ML VIAL SQ SCH (23:00)
[2016-11-10] MEDS ORDERED: BISACODYL 10 MG SUPP RECTAL PRN (23:00)
[2016-11-10] MEDS ORDERED: GLUCAGON 1 MG/ML VIAL OTHER PRN (23:00)
[2016-11-10] MEDS ORDERED: DEXTROSE 50% IN WATER 50 ML VIAL(D50) IV PUSH PRN (23:00)
[2016-11-10] MEDS ORDERED: ACETAMINOPHEN 325 MG TAB PO PRN (23:00)
[2016-11-10 23:07] VITALS: BP 156/76; PULSE 75; RESP 16; O2SAT 98
[2016-11-11] VITALS (7 sets, daily range): BP systolic 167–193; BP diastolic 72–90; PULSE 60–75; RESP 16–21; TEMP 97.9–98.8; O2SAT 97–98
[2016-11-11] MEDS: cloNIDine HCL 0.1 MG TAB PO PRN ×2 (00:42→08:27)
--- NOTE | 2016-11-11 08:21 | HHI.HP ---
HPI Service [facility] Primary Care Physician Harrison Jackson MD Admission Diagnosis dizziness, hyperglycemia Diagnoses: (Stacy Andres) Travel History International Travel<30 Days: No Contact w/Intl Traveler <30 Da: No Traveled to Known Affected Are: No (Stacy Andres) History of Present Illness This is an 81-year-old male with history of hypertension, CVA, dementia, hyperlipidemia, CAD and stents, a flutter. Patient presented to the emergency room for evaluation of dizziness and shakiness. Patient is somewhat of a poor historian, history of dementia as well as hard of hearing. Information is obtained from patient and emergency room report. Patient indicates he went to see his paint stockman and received a pain shot for his sciatica. When he got home, he had increased pain and he took 2 extra painkillers. Patient is not sure exactly what he took however he is on Soma. Patient states that when he went to stand up he had the shakes and felt very dizzy. He used a rolling chair from his desk to get around. He has chronic shortness of breath, occasional palpitations, denies any chest pain, no palpitations. No nausea, no vomiting, no vision changes. Patient did not have any syncopal episodes. Patient was evaluated in emergency room, blood glucose was noted a 418. Patient does have history of chronic kidney disease, creatinine stable, 1.89, GFR 34. Urinalysis was clear. Patient indicates that at home he is well- controlled and usually in the mid 100s. Blood pressure has been noted elevated , initially 162/75, most recent one 189/90. Indicates that the pain management specialists his blood pressure was in the 130s. Chest x-ray revealed cardiomegaly but otherwise no acute findings. Patient was given IV fluids. At this time, patient is feeling better. Has no complaints. Patient is admitted for further validation and treatment (Stacy Andres) Review of Systems ROS Limitations: Other (PAIMIUT) Respiratory: COMPLAINS OF: Shortness of breath Cardiovascular: COMPLAINS OF: Palpitations Musculoskeletal: COMPLAINS OF: Back pain Neurologic: COMPLAINS OF: Abnormal gait (Stacy Andres) Past Family Social History Past Medical History CVA Hypothyroidism Bladder cancer Dementia GI bleed Arthritis Asthma Anxiety Hyperlipidemia Diabetes type 2 [place] with cardiac stent Hypertension Degenerative disc disease History of tobacco use History of alcohol use Chronic back pain Past Surgical History Cardiac stents Bladder surgery for bladder mass Reported Medications Reported Meds & Active Scripts Active Amiodarone (Amiodarone HCl) 200 Mg Tab 200 Mg PO DAILY Reported Iron (Ferrous Sulfate) 50 Mg Tab 65 Mg PO DAILY Metoprolol Tartrate 25 Mg Tab 25 Mg PO TID Pantoprazole (Pantoprazole Sodium) 40 Mg Tab 40 Mg PO DAILY Glimepiride 4 Mg Tab 4 Mg PO BIDAC Gabapentin 100 Mg Cap 100 Mg PO TID Terazosin (Terazosin HCl) 5 Mg Cap 5 Mg PO HS Carisoprodol 350 Mg Tab 350 Mg PO QID PRN Montelukast (Montelukast Sodium) 10 Mg Tab 10 Mg PO HS Aspirin Childrens (Aspirin) 81 Mg Chew 81 Mg CHEW DAILY Nitroglycerin SL (Nitroglycerin) 0.4 Mg Subl 0.4 Mg SL DIRECTED PRN ONE TABLET UNDER THE TONGUE NEEDED FOR CHEST PAIN, MAY REPEAT EVERY FIVE MINUTES FOR A TOTAL OF 3 DOSES OR CALL 911 IF NO RELIEF Levothyroxine (Levothyroxine Sodium) 25 Mcg Tab 25 Mcg PO DAILY Atorvastatin (Atorvastatin Calcium) 80 Mg Tab 80 Mg PO HS Donepezil Hydrochloride 5 Mg Tab 10 Mg PO DAILY Namenda (Memantine) 10 Mg Tab 0 PO BID Lisinopril 20 Mg Tab 20 Mg PO DAILY Acarbose 50 Mg Tab 50 Mg PO TID [ bydureon] 1 Applic SQ WEEKLY (Stacy Andres) Allergies: Coded Allergies: Eliquis (Verified Allergy, Severe, bleeding, 11/10/16) requests not to be given Levaquin (Verified Allergy, Intermediate, RASH, 11/10/16) Penicillin (Verified Allergy, Unknown, UNKNOWN REACTION, 11/10/16) Active Ordered Medications Inpatient Medications Acetaminophen (Tylenol) 650 mg Q4H PRN PO TEMP > 100.4 Last administered on 11/11 00:43; Start 11/10/16 at 23:00 Bisacodyl (Dulcolax Supp) 10 mg DAILY PRN RECTAL CONSTIPATION; Start 11/10/16 at 23:00 Clonidine (Catapres) 0.1 mg Q6H PRN PO hypetension Last administered on 00:42; Start 11/10/16 at 23:00 Dextrose (D50w (Vial) Inj) 25 ml UNSCH PRN IV PUSH HYPOGLYCEMIA-SEE COMMENTS; Start 11/10/16 at 23:00 Glucagon (Glucagon Inj) 1 mg UNSCH PRN OTHER HYPOGLYCEMIA-SEE COMMENTS; Start 11/10/16 at 23:00 Heparin Sodium (Porcine) (Heparin Inj) 5,000 units Q12H SQ Last administered on 11/10/16 23:00; Start 11/10/16 at 23:00 Insulin Aspart (NovoLOG SUPPLEMENTAL SCALE) 1 ACHS SLIDING SCALE SQ ; Start 11/11/16 at 07:00 Naloxone HCl (Narcan Inj) 0.4 mg UNSCH PRN IV SEE LABEL COMMENTS; Start at 23:00 Ondansetron HCl (Zofran Inj) 4 mg Q6H PRN IVP NAUSEA OR VOMITING; Start at 23:00 Sennosides (Senokot) 17.2 mg Q12H PRN PO CONSTIPATION; Start 11/10/16 at 23:00 Sodium Chloride (NS 1000 ml Inj) 1,000 ml @ 50 mls/hr Q20H IV Last administered on 11/10/16 22:48; Start 11/10/16 at 22:48 Sodium Chloride (NS Flush) 2 ml BID IV FLUSH ; Start 11/11/16 at 09:00 Sodium Chloride 2 ml 2 ml UNSCH PRN IVF FLUSH AFTER USING IV ACCESS; Start 11/10 at 21:00; Stop 11/10/16 at 22:57; Status DC Family History Mother and father [place] Father cancer Social History Lives with Tobacco abuse quit in 1979 EtOH abuse quit proximately 30 years ago No illicit drugs (Stacy Andres) Physical Exam Vital Signs Vital Signs Date Time Temp Pulse Resp B/P Pulse Ox O2 Delivery O2 Flow Rate FiO2 11/11/16 08:04 98.8 66 21 189/90 98 11/11/16 01:51 18 11/11/16 01:20 97.9 66 20 185/79 97 11/11/16 00:36 75 16 189/89 98 11/10/16 23:07 75 16 156/76 98 2 11/10/16 21:45 75 16 158/73 78 164/76 86 193/86 11/10/16 21:15 99 2 5/2/17 20:47 98.2 75 16 162/75 99 Physical Exam GENERAL: This is a well-nourished, well-developed patient, in no apparent distress. SKIN: No rashes, ecchymoses or lesions. Cool and dry. HEAD: Atraumatic. Normocephalic. No temporal or scalp tenderness. EYES: Pupils equal round and reactive. Extraocular motions intact. No scleral icterus. No injection or drainage. ENT: Nose without bleeding, purulent drainage or septal hematoma. Throat without erythema, tonsillar hypertrophy or exudate. Uvula midline. Airway patent. NECK: Trachea midline. No JVD or lymphadenopathy. Supple, nontender, no meningeal signs. CARDIOVASCULAR: Regular rate and rhythm without murmurs, gallops, or rubs. RESPIRATORY: Clear to auscultation. Breath sounds equal bilaterally. No wheezes , rales, or rhonchi. GASTROINTESTINAL: Abdomen soft, non-tender, nondistended. No hepato-splenomegaly , or palpable masses. No guarding. MUSCULOSKELETAL: Extremities without clubbing, cyanosis, or edema. No joint tenderness, effusion, or edema noted. No calf tenderness. Negative Homans sign bilaterally. NEUROLOGICAL: Awake, alert, oriented x 3. PAIMIUT. No focal deficits. Laboratory Laboratory Tests Test 11/10/16 11/10/16 21:10 21:35 White Blood Count 6.4 Red Blood Count 4.55 Hemoglobin 12.8 Hematocrit 40.1 Mean Corpuscular Volume 88.3 Mean Corpuscular Hemoglobin 28.1 Mean Corpuscular Hemoglobin 31.9 Concent Red Cell Distribution Width 23.4 Platelet Count 101 Mean Platelet Volume 7.7 Neutrophils (%) (Auto) 89.0 Lymphocytes (%) (Auto) 7.6 Monocytes (%) (Auto) 2.7 Eosinophils (%) (Auto) 0.3 Basophils (%) (Auto) 0.4 Neutrophils # (Auto) 5.7 Lymphocytes # (Auto) 0.5 Monocytes # (Auto) 0.2 Eosinophils # (Auto) 0.0 Basophils # (Auto) 0.0 CBC Comment AUTO DIFF Differential Comment AUTO DIFF CONFIRMED Platelet Estimate LOW Platelet Morphology Comment NORMAL Ovalocytes 1+ Prothrombin Time 11.4 Prothromb Time International 1.0 Ratio Activated Partial 25.3 Thromboplast Time Sodium Level 140 Potassium Level 4.6 Chloride Level 105 Carbon Dioxide Level 24.2 Anion Gap 11 Blood Urea Nitrogen 22 Creatinine 1.89 Estimat Glomerular Filtration 34 Rate Random Glucose 418 Calcium Level 8.3 Magnesium Level 2.0 Total Creatine Kinase 61 Troponin I 0.02 Urine Color YELLOW Urine Turbidity CLEAR Urine pH 5.5 Urine Specific [place] 1.028 Urine Protein TRACE Urine Glucose (UA) 1000 Urine Ketones NEG Urine Occult Blood NEG Urine Nitrite NEG Urine Bilirubin NEG Urine Urobilinogen LESS THAN 2.0 Urine Leukocyte Esterase NEG Urine RBC LESS THAN 1 Urine Mucus FEW Microscopic Urinalysis Comment CULT NOT INDICATED (Stacy Andres) Result Diagram: 11/10/16210911/10/162109 Imaging Last Impressions Chest X-Ray 11/10/162048 Signed Impressions: Service Date/Time: Thursday, November 10, 2016 21:24 - CONCLUSION: Cardiomegaly. Ethan Rodriguez MD (Stacy Andres) Assessment and Plan Problem List: (1) Dizziness (2) Hyperglycemia (3) CKD (chronic kidney disease) stage 3, GFR 30-59 ml/min (4) Hypertension (5) CAD (coronary artery disease) (6) Hyperlipidemia (7) Anxiety (8) Bladder cancer (9) History of CVA (cerebrovascular accident) (10) Chronic back pain Assessment and Plan Admit to Dr. Dumont 81-year-old elderly male presented to the emergency room complaining of feeling dizzy and shaky. Has history of chronic pain, had gone to his paint stockman yesterday and received what sounds like a steroid injection. He apparently to 2 extra medications at home after procedure, possibly Soma. Patient admitted for dizziness, possibly secondary to polypharmacy. -Hold Soma -Continuous cardiac telemetry -Patient has been counseled about polypharmacy. -Physical therapy for evaluation -Cautious hydration Hyperglycemia, history of type 2 diabetes -Accu-Cheks before meals and at bedtime with insulin therapy -Resume oral hypoglycemics Hypertension uncontrolled Continue with clonidine when necessary Resume home medications History of CAD and stents Continue home medications History of a flutter, currently sinus rhythm with first-degree AV block Continue home medications, -Continuous cardiac telemetry -Patient is not on any anticoagulation, it is not clear as to the reason. Patient to follow-up with his own insurance claims specialist as outpatient CK D stage III-stable Continue with cautious hydration Dementia Continue home medications Chronic back pain with sciatica Continue with gabapentin Home medications reviewed, initiated as indicated Consult physical therapy for evaluation SCDs and heparin for DVT prophylaxis Protonix for GI prophylaxis Possible discharge this afternoon, will have physical therapy assist patient with ambulation. We will reevaluate. Plan of care has been discussed with the patient, attending and registered nurse. Further management of the patient will be dependent on the hospital course This patient was seen by myself and Dr. Dumont, this H&P is written on his behalf (Stacy Andres) Assessment and Plan pt was seen & examined on 11/11/16 around 10 AM d/w PT d/w Pt's RN d/w stacy merchant w above repeat BMP was checked BP was controlled pt was d/c home see MRS see Orders he was rec to f/u w PCP (Neelima Dumont MD) Problem Qualifiers (1) Hypertension: Qualified Code: I10 - Essential hypertension (2) CAD (coronary artery disease): Qualified Code: I25.10 - Coronary artery disease involving creek coronary artery of creek heart without angina pectoris (3) Hyperlipidemia: Qualified Code: E78.5 - Hyperlipidemia, unspecified hyperlipidemia type (4) Bladder cancer: Qualified Code: C67.9 - Malignant neoplasm of urinary bladder, unspecified site (5) Chronic back pain: Qualified Code: M54.40 - Chronic low back pain with sciatica, sciatica laterality unspecified, unspecified back pain laterality Stacy Andres November 11, 2016 08:21 Neelima Dumont MD November 13, 2016 10:43
--- NOTE | 2016-11-11 08:44 | EKG ---
Date Performed: 11/10/2016 Time Performed: 21:06:03 PTAGE: 81 years EKG: Sinus rhythm WITH FIRST DEGREE AV BLOCK NONSPECIFIC T-WAVE ABNORMALITY PROLONGED QT INTERVAL ABNORMAL ECG PREVIOUS TRACING : 08/01/2016 11.01 DOCTOR: Chris Jiang Interpretating Date/Time 11/11/2016 08:42:51
[2016-11-11] MEDS ORDERED: PANTOPRAZOLE SOD 40 MG DELAYED RELEASE TAB PO SCH (09:00)
[2016-11-11] MEDS ORDERED: SODIUM CHLORIDE 0.9% FLUSH 10 ML FLUSH IV FLUSH SCH (09:00)
[2016-11-11] MEDS ORDERED: LISINOPRIL 20 MG TAB PO SCH (09:00)
[2016-11-11] MEDS ORDERED: ASPIRIN 81 MG CHEW TAB CHEW SCH (09:00)
[2016-11-11] MEDS ORDERED: AMIODARONE 200 MG TAB PO SCH (09:00)
[2016-11-11] MEDS ORDERED: DONEPEZIL HCL 5 MG TAB PO SCH (09:15)
[2016-11-11] MEDS ORDERED: ACARBOSE 50 MG PO SCH (09:15)
[2016-11-11] MEDS ORDERED: LEVOTHYROXINE SODIUM 25 MCG TAB PO SCH (09:15)
[2016-11-11] MEDS ORDERED: FERROUS SULFATE 65 MG PO SCH (09:15)
[2016-11-11] MEDS: METOPROLOL TARTRATE 25 MG TAB PO SCH ×3 (09:36→17:00)
[2016-11-11] MEDS: INSULIN ASPART SUPPLEMENTAL SCALE SQ SCH ×3 (09:37→18:22)
[2016-11-11] MEDS: GABAPENTIN 100 MG CAP PO SCH ×3 (09:37→17:00)
[2016-11-11] MEDS ORDERED: LISI40TA PO (10:51)
[2016-11-11] MEDS ORDERED: amLODIPine BESYLATE 5 MG TAB PO ONE (11:00)
[2016-11-11 11:29] LABS: BICARBONATE 26.8 MEQ/L (21.0-32.0); POTASSIUM 4.5 MEQ/L (3.5-5.1)
[2016-11-11] MEDS: HEPARIN SODIUM - SQ 10,000 UNITS/ML VIAL SQ SCH (11:42)
[2016-11-11] MEDS ORDERED: GLIMEPIRIDE 4 MG TAB PO SCH (16:00)
[2016-11-11] MEDS ORDERED: ATORVASTATIN 80 MG TAB PO SCH (21:00)
[2016-11-11] MEDS ORDERED: TERAZOSIN HCL 5 MG CAP PO SCH (21:00)
[2016-11-11] MEDS ORDERED: MONTELUKAST SODIUM 10 MG TAB PO SCH (21:00)
[2016-11-12] MEDS ORDERED: amLODIPine BESYLATE 5 MG TAB PO SCH (09:00)
== END 2016-11-11 18:53 | disposition home or self-care (01) ==
LOC: NEPE 20:39 → NEDA 22:27 → NEPHCDU 11-11 00:54
PROVIDERS: ADMIT Specialist; ATTEND Specialist
DX: R42 Dizziness and giddiness (principal); M19.90 Unspecified osteoarthritis, unspecified site; J45.909 Unspecified asthma, uncomplicated; F41.9 Anxiety disorder, unspecified; Z86.73 Personal history of transient ischemic attack (TIA), and cerebral infarction without residual deficits; F03.90 Unspecified dementia, unspecified severity, without behavioral disturbance, psychotic disturbance, mood disturbance, and anxiety; E11.65 Type 2 diabetes mellitus with hyperglycemia; Z79.01 Long term (current) use of anticoagulants; Z79.899 Other long term (current) drug therapy; Z79.84 Long term (current) use of oral hypoglycemic drugs; I25.10 Atherosclerotic heart disease of native coronary artery without angina pectoris; Z95.5 Presence of coronary angioplasty implant and graft; E78.5 Hyperlipidemia, unspecified; I48.92 Unspecified atrial flutter; R00.2 Palpitations; N18.3 Chronic kidney disease, stage 3 (moderate); I51.7 Cardiomegaly; E03.9 Hypothyroidism, unspecified; Z85.51 Personal history of malignant neoplasm of bladder; G89.29 Other chronic pain; E11.22 Type 2 diabetes mellitus with diabetic chronic kidney disease; I44.0 Atrioventricular block, first degree; I12.9 Hypertensive chronic kidney disease with stage 1 through stage 4 chronic kidney disease, or unspecified chronic kidney disease
CPT/HCPCS: 71010; 80048; 81001; 82550; 82948; 83735; 84484; 85025; 85610; 85730; 93005; 96360; 97161; 99285; G0378; G8987; G8988; J1644; J1815; J7030; J7040